=== PATIENT | male | born 1960 | race Caucasian/White ===

== ENCOUNTER → 2016-07-02 | Outpatient (CLI) | payer OTHER ==
--- NOTE | 2016-07-02 14:44 | US ---
EXAMINATION TYPE: US abdomen complete DATE OF EXAM: 07/02/2016 2:29 PM COMPARISON: NONE CLINICAL HISTORY: R10.9 Abdominal Pain. Cannot eat for weeks EXAM MEASUREMENTS: Liver Length: 16.2cm Gallbladder Wall: 0.2cm CBD: 0.6cm Spleen: 11.5cm Right Kidney: 9.8 x 4.8 x 4.9cm Left Kidney: 10.3 x 4.4 x 5.2cm TECHNOLOGIST IMPRESSION: obscuring bowel gas limited Pancreas: limited views due to bowel gas Liver: possible focal fatty sparring seen near nilda hepatis, intercostal imaging only Gallbladder: wnl Evidence for sonographic Post's sign: no CBD: wnl Spleen: wnl Right Kidney: wnl Left Kidney: wnl Upper IVC: wnl Abd Aorta: limited views due to bowel gas The liver is heterogeneously hyperechoic. Evaluation for focal masses is limited due to the heterogen eity. Suspect fatty infiltration. The intrahepatic portion of the IVC and visualized abdominal aorta are within normal limits. There is no evidence of cholelithiasis. Common bile duct is upper limits of normal. The visualized portions of the pancreas are homogenous. The spleen is unremarkable. Kid neys are symmetric and free of hydronephrosis. No renal lesions are seen. IMPRESSION: No significant finding is seen to account for patient's symptoms. Diffuse fatty infiltrat ion of liver is felt present.
== END | disposition home or self-care (01) ==
LOC: RADUSWWP 14:09
PROVIDERS: ATTEND Family Medicine
DX: R10.9 Unspecified abdominal pain (principal)
CPT/HCPCS: 76700

== ENCOUNTER 2017-11-05 12:28 | Emergency (ER) | payer OTHER ==
[2017-11-05] MEDS ORDERED: SODIUM CHLORIDE 0.9% 1,000 ML IV STA ×2 (13:59)
[2017-11-05] MEDS ORDERED: PANTOPRAZOLE 40 MG/10 ML VIAL IVP STA (13:59)
[2017-11-05] MEDS ORDERED: ONDANSETRON 4 MG/2 ML VIAL IVP STA (13:59)
[2017-11-05 14:35] LABS: Basophils # (A) 0.1 k/uL (0-0.2); Basophils % (A) 1 %; Eosinophils # (A) 0.2 k/uL (0-0.7); Eosinophils % (A) 2 %; HCT 45.5 % (39.0-53.0); HGB 15.6 gm/dL (13.0-17.5); Lymphocytes # (A) 2.2 k/uL (1.0-4.8); Lymphocytes % (A) 26 %; MCH 29.5 pg (25.0-35.0); MCHC 34.3 g/dL (31.0-37.0); MCV 85.8 fL (80.0-100.0); Mean Platelet Volume 7.2; Monocytes # (A) 0.8 k/uL (0-1.0); Monocytes % (A) 9 %; Neutrophils # (A) 5.3 k/uL (1.3-7.7); Neutrophils % (A) 61 %; Platelet Count 247 k/uL (150-450); WBC 8.7 k/uL (3.8-10.6)
[2017-11-05 14:43] LABS: Albumin 4.3 g/dL (3.5-5.0); Appearance,Urine Clear (Clear); Bilirubin,Urine Negative (Negative); Blood,Urine Trace (Negative); Calcium 9.4 mg/dL (8.4-10.2); Color,Urine Yellow; Glucose,Urine (UA) Negative (Negative); INR 3.8 (<1.2); Ketones,Urine Negative (Negative); Leukocyte Esterase,Urine Negative (Negative); Mucus,Urine Rare /hpf; Nitrite,Urine Negative (Negative); PH, Urine 5.5 (5.0-8.0); Partial Thromboplastin Time 28.4 sec (22.0-30.0); Potassium 4.4 mmol/L (3.5-5.1); Protein,Urine Negative (Negative); Prothrombin Time 33.8 sec (9.0-12.0); RBC,Urine 4 /hpf (0-5); Specific Gravity,Urine 1.019 (1.001-1.035); Total Bilirubin 0.8 mg/dL (0.2-1.3); Total Protein 7.1 g/dL (6.3-8.2); Urobilinogen,Urine <2.0 mg/dL (<2.0); WBC,Urine 1 /hpf (0-5)
--- NOTE | 2017-11-05 14:43 | ED ---
Abdominal Pain HPI - General Chief Complaint: Abdominal Pain Stated Complaint: abdominal pain/nausea Time Seen by Provider: 11/05/17 13:39 Source: patient, RN notes reviewed, old records reviewed Mode of arrival: ambulatory Limitations: no limitations - History of Present Illness Initial Comments: 57-year-old male presents emergency departmetn with CC of chronic abdominal pain. HE reports occasional bloody Stools, and episodes of nausea for the past few weeks. He has extensive surgical history including history of mesenteric ischemia, in which He's had 18 inches of his bowel removed surgery done at [facility] last year. . Patient reports that he is supposed follow-up with Dr. Polk regards to the history of bloody stools. He is scheduled to have a computed tomography scan but family felt like he could not wait due to the pain and nausea. He's been having poor appetite. No fever, chills. No recent bloody stools. No vomiting. - Related Data Home Medications Medication Instructions Recorded Confirmed Aspirin EC [Ecotrin Low Dose] 81 mg PO HS 11/05/17 11/05/17 Atorvastatin [Lipitor] 40 mg PO HS 11/05/17 11/05/17 Bisoprolol-Hctz 10-6.25 mg [Ziac 1 tab PO HS 11/05/17 11/05/17 10-6.25] Levothyroxine Sodium [Synthroid] 100 mcg PO DAILY 11/05/17 11/05/17 Lisinopril [Zestril] 20 mg PO HS 11/05/17 11/05/17 OLANZapine [ZyPREXA] 15 mg PO HS 11/05/17 11/05/17 Omeprazole 20 mg PO BID 11/05/17 11/05/17 Warfarin [Coumadin] 1 mg PO HS 11/05/17 11/05/17 Warfarin [Coumadin] 5 mg PO HS 11/05/17 11/05/17 clomiPRAMINE HCL 75 mg PO DAILY 11/05/17 11/05/17 clomiPRAMINE HCL 150 mg PO HS 11/05/17 11/05/17 oxyCODONE HCL 20 mg PO TID PRN 11/05/17 11/05/17 Previous Rx's Medication Instructions Recorded Ondansetron Odt [Zofran Odt] 4 mg PO Q8HR PRN #12 tab 11/05/17 Allergies Allergy/AdvReac Type Severity Reaction Status Date / Time morphine Allergy Severe Itching Verified 11/05/17 13:54 Review of Systems ROS Statement: Those systems with pertinent positive or pertinent negative responses have been documented in the HPI. ROS Other: All systems not noted in ROS Statement are negative. 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 Alert and oriented. No distress. Limitations: no limitations General appearance: alert, in no apparent distress Head exam: Present: atraumatic, normocephalic, normal inspection Eye exam: Present: normal appearance, PERRL, EOMI. Absent: scleral icterus, conjunctival injection, periorbital swelling ENT exam: Present: normal exam, mucous membranes moist Neck exam: Present: normal inspection. Absent: tenderness, meningismus, lymphadenopathy Respiratory exam: Present: normal lung sounds bilaterally. Absent: respiratory distress, wheezes, rales, rhonchi, stridor Cardiovascular Exam: Present: regular rate, normal rhythm, normal heart sounds. Absent: systolic murmur, diastolic murmur, rubs, gallop, clicks GI/Abdominal exam: Present: soft, tenderness (Patient has some diffuse tenderness over the abdomen. Very large incision over the abdomen.), normal bowel sounds. Absent: distended, guarding, rebound, rigid Extremities exam: Present: normal inspection, full ROM, normal capillary refill. Absent: tenderness, pedal edema, joint swelling, calf tenderness Back exam: Present: normal inspection Neurological exam: Present: alert, oriented X3, CN II-XII intact Psychiatric exam: Present: normal affect, normal mood Skin exam: Present: warm, dry, intact, normal color. Absent: rash Course Vital Signs 11/05/17 11/05/17 11/05/17 12:58 15:27 16:24 Temperature 98.2 F 97.6 F 97.5 F L Pulse Rate 60 52 L 54 L Respiratory 16 16 18 Rate Blood Pressure 140/92 101/57 109/57 O2 Sat by Pulse 96 97 97 Oximetry Medical Decision Making - Medical Decision Making 57 year old male with extensive abdominal surgery history presents with nausea and chronic abdominal pain. Patient also has had history of bloody stools over the past few months, none recently. Family encouraged him to be elaulated sooner.He has an extensive scar in mid abdomen with hernia related to surgery. PAtient was tedner over the area, but appears in no distress. Patient lab work was unremarkable, besides mildy elevated INR of 3.8. He will hold off on coumadin today. Rechecked next week. Patient CT scan shows extensive diastasis recti from surgery. No other acute changes. Patient has plans to follow up with surgery. Patient informed of all results, no new acute changes. Patient will follow up with PCP and surgery, return parameters discussed. - Lab Data Result diagrams: 11/05/17 14:09 11/05/17 14:09 Lab Results 11/05/17 11/05/17 11/05/17 Range/Units 14:09 14:09 14:09 WBC 8.7 (3.8-10.6) k/uL RBC 5.30 (4.30-5.90) m/uL Hgb 15.6 (13.0-17.5) gm/dL Hct 45.5 (39.0-53.0) % MCV 85.8 (80.0-100.0) fL MCH 29.5 (25.0-35.0) pg MCHC 34.3 (31.0-37.0) g/dL RDW 14.0 (11.5-15.5) % Plt Count 247 (150-450) k/uL Neutrophils % 61 % Lymphocytes % 26 % Monocytes % 9 % Eosinophils % 2 % Basophils % 1 % Neutrophils # 5.3 (1.3-7.7) k/uL Lymphocytes # 2.2 (1.0-4.8) k/uL Monocytes # 0.8 (0-1.0) k/uL Eosinophils # 0.2 (0-0.7) k/uL Basophils # 0.1 (0-0.2) k/uL PT 33.8 H (9.0-12.0) sec INR 3.8 H (<1.2) APTT 28.4 (22.0-30.0) sec Sodium 138 (137-145) mmol/L Potassium 4.4 (3.5-5.1) mmol/L Chloride 99 (98-107) mmol/L Carbon Dioxide 28 (22-30) mmol/L Anion Gap 11 mmol/L BUN 20 (9-20) mg/dL Creatinine 1.10 (0.66-1.25) mg/dL Est GFR (CKD-EPI)AfAm 86 (>60 ml/min/1.73 sqM) Est GFR (CKD-EPI)NonAf 75 (>60 ml/min/1.73 sqM) Glucose 99 (74-99) mg/dL Calcium 9.4 (8.4-10.2) mg/dL Total Bilirubin 0.8 (0.2-1.3) mg/dL AST 27 (17-59) U/L ALT 39 (21-72) U/L Alkaline Phosphatase 80 (38-126) U/L Total Protein 7.1 (6.3-8.2) g/dL Albumin 4.3 (3.5-5.0) g/dL Amylase 51 (30-110) U/L Lipase 163 (23-300) U/L Urine Color Urine Appearance (Clear) Urine pH (5.0-8.0) Ur Specific [place] (1.001-1.035) Urine Protein (Negative) Urine Glucose (UA) (Negative) Urine Ketones (Negative) Urine Blood (Negative) Urine Nitrite (Negative) Urine Bilirubin (Negative) Urine Urobilinogen (<2.0) mg/dL Ur Leukocyte Esterase (Negative) Urine RBC (0-5) /hpf Urine WBC (0-5) /hpf Urine Mucus (None) /hpf 11/05/17 Range/Units 14:09 WBC (3.8-10.6) k/uL RBC (4.30-5.90) m/uL Hgb (13.0-17.5) gm/dL Hct (39.0-53.0) % MCV (80.0-100.0) fL MCH (25.0-35.0) pg MCHC (31.0-37.0) g/dL RDW (11.5-15.5) % Plt Count (150-450) k/uL Neutrophils % % Lymphocytes % % Monocytes % % Eosinophils % % Basophils % % Neutrophils # (1.3-7.7) k/uL Lymphocytes # (1.0-4.8) k/uL Monocytes # (0-1.0) k/uL Eosinophils # (0-0.7) k/uL Basophils # (0-0.2) k/uL PT (9.0-12.0) sec INR (<1.2) APTT (22.0-30.0) sec Sodium (137-145) mmol/L Potassium (3.5-5.1) mmol/L Chloride (98-107) mmol/L Carbon Dioxide (22-30) mmol/L Anion Gap mmol/L BUN (9-20) mg/dL Creatinine (0.66-1.25) mg/dL Est GFR (CKD-EPI)AfAm (>60 ml/min/1.73 sqM) Est GFR (CKD-EPI)NonAf (>60 ml/min/1.73 sqM) Glucose (74-99) mg/dL Calcium (8.4-10.2) mg/dL Total Bilirubin (0.2-1.3) mg/dL AST (17-59) U/L ALT (21-72) U/L Alkaline Phosphatase (38-126) U/L Total Protein (6.3-8.2) g/dL Albumin (3.5-5.0) g/dL Amylase (30-110) U/L Lipase (23-300) U/L Urine Color Yellow Urine Appearance Clear (Clear) Urine pH 5.5 (5.0-8.0) Ur Specific [place] 1.019 (1.001-1.035) Urine Protein Negative (Negative) Urine Glucose (UA) Negative (Negative) Urine Ketones Negative (Negative) Urine Blood Trace H (Negative) Urine Nitrite Negative (Negative) Urine Bilirubin Negative (Negative) Urine Urobilinogen <2.0 (<2.0) mg/dL Ur Leukocyte Esterase Negative (Negative) Urine RBC 4 (0-5) /hpf Urine WBC 1 (0-5) /hpf Urine Mucus Rare H (None) /hpf - Radiology Data Radiology results: report reviewed Rectus diastasis measuring 13.9 cm wide extending from the xiphoid process along below the umbilicus 24.8 cm caudal cranial. Alarming inferior margin of the diaphyses there is irregular soft tissue thickening measuring 4.6 cm suspected to represent masslike scar tissue. Correlate with physical exam findings to exclude enlarging mass. Correlation should also be made for recent first Patient small bowel obstruction. Disposition Clinical Impression: Diastasis recti, Nausea, Elevated INR Disposition: HOME SELF-CARE Condition: Good Instructions: Ventral Hernia (ED) Additional Instructions: Patient advised to hold off on taking her Coumadin today. Recheck the INR next week. Patient should take the nausea medicine as prescribed. Follow-up with her surgeon as scheduled. Return to emergency department if any alarming signs or symptoms occur. Prescriptions: Ondansetron Odt [Zofran Odt] 4 mg PO Q8HR PRN #12 tab PRN Reason: Nausea Is patient prescribed a controlled substance at d/c from ED?: No When asked, does pt state using other controlled substances?: No If prescribed controlled substance>3 days was MAPS reviewed?: No If opioid is for acute pain is fill amount 7 days or less?: No If Rx opioid, was Start Talking consent form obtained?: No Referrals: Renaldo Rosales MD [Primary Care Provider] - 1-2 days Time of Disposition: 16:08
--- NOTE | 2017-11-05 15:23 | CT ---
EXAMINATION TYPE: CT abdomen pelvis w con DATE OF EXAM: 11/05/2017 COMPARISON: NONE HISTORY: 57-year-old male Abdominal pain/nausea. Surgery couple years ago. TECHNIQUE: Contiguous axial scanning of the abdomen and pelvis following administration of 100 ml Iso maegan 300 IV contrast. Delayed images through the kidneys and coronal/sagittal reconstructions perform ed. CT DLP: 2434.9 mGycm Automated exposure control for dose reduction was used. FINDINGS:. Heart normal size without pericardial effusion. Strandy inferior lingular atelectasis. No pleural eff usion. Tiny subcentimeter hypodensity along the falciform ligament too small for accurate CT characterizatio n, likely tiny cyst. Portal venous system is patent. No biliary ductal dilatation. Gallbladder, adrenal glands, right kidney, spleen, and pancreas show no gross organomegaly. Subcentimeter hypodensity anterior mid pole left kidney too small fractured CT characterization, like ly cyst. There is a stent in the origin of the SMA. No mesenteric or retroperitoneal lymphadenopathy. No dilated small bowel, free fluid, or free air. Mild/moderate stool burden without pericolonic infla mmatory change. Stable line from prior small bowel resection and reanastomosis in the mid lower abdom en. There is rectus diastases extending from the xiphoid to just below the umbilicus, 24.8 cm craniocauda l in separation of 13.9 cm wide. Anterior bulging convexity is noted. Along the inferior margin of th e diastases, there is focal irregular soft tissue density measuring 4.6 x 2.9 cm at the linea alba tracy spected to represent masslike scar tissue, axial image 59 and sagittal image 61. Bladder nondistended. No abnormal fluid collection in the pelvis or pelvic lymphadenopathy. Bones: No osseous destructive process. Degenerative disc disease L5-S1. IMPRESSION: 1. RECTUS DIASTASES MEASURING 13.9 CM WIDE EXTENDING FROM THE XIPHOID PROCESS DOWN BELOW THE UMBILICU S, 24.8 CM CRANIOCAUDAL. 2. ALONG THE INFERIOR MARGIN OF THE DIASTASES, THERE IS IRREGULAR SOFT TISSUE THICKENING MEASURING 4. 6 CM SUSPECTED TO REPRESENT MASSLIKE SCAR TISSUE. CORRELATE WITH PHYSICAL EXAM FINDINGS TO EXCLUDE AN Y ENLARGING MASS. CORRELATION COULD ALSO BE MADE TO THE REASON FOR THE PATIENT'S SMALL BOWEL RESEC TION.
[2017-11-05 16:25] VITALS: BP 109/57; PULSE 54; RESP 18; TEMP 97.5
== END 2017-11-05 16:24 | disposition home or self-care (01) ==
LOC: EC 12:28
DX: M62.08 Separation of muscle (nontraumatic), other site (principal); R11.0 Nausea; R79.1 Abnormal coagulation profile; G89.29 Other chronic pain; K92.1 Melena; R63.8 Other symptoms and signs concerning food and fluid intake; E78.5 Hyperlipidemia, unspecified; I10 Essential (primary) hypertension; K21.9 Gastro-esophageal reflux disease without esophagitis; E07.9 Disorder of thyroid, unspecified; M19.90 Unspecified osteoarthritis, unspecified site; H40.9 Unspecified glaucoma; F32.9 Major depressive disorder, single episode, unspecified; Z87.891 Personal history of nicotine dependence; Z79.01 Long term (current) use of anticoagulants; Z79.82 Long term (current) use of aspirin; Z79.899 Other long term (current) drug therapy; Z88.5 Allergy status to narcotic agent; Z90.49 Acquired absence of other specified parts of digestive tract; Z98.890 Other specified postprocedural states; Z97.0 Presence of artificial eye
CPT/HCPCS: 36415; 80053; 82150; 83690; 85025; 85610; 85730; 81001; 74177; 99284; 96374; 96375; 96361 ×2; J2405; C9113; Q9967

== ENCOUNTER → 2017-12-03 | Outpatient (CLI) | payer OTHER ==
--- NOTE | 2017-12-03 11:32 | US ---
EXAMINATION TYPE: US gallbladder DATE OF EXAM: 12/03/2017 COMPARISON: CLINICAL HISTORY: R10.11 Right upper quad pain. Nausea, generalized pain EXAM MEASUREMENTS: Liver Length: 15.8 cm Gallbladder Wall: 0.2 cm CBD: 0.4 cm CHD: 0.3 cm Right Kidney: 10.4 x 4.9 x 6.1 cm Pancreas: Appears echogenic. Tail obscured by overlying bowel gas Liver: Anterior cystic appearing lesion seen in right lobe = 1.1 x 1.0 x 0.7 cm. Heterogenous. Ech ogenic. Areas of focal sparing seen. Gallbladder: wnl, fold seen Evidence for sonographic Post's sign: neg CBD: wnl CHD: wnl Right Kidney: wnl IMPRESSION: 1. Hepatic cysts. 2. Hepatic heterogeneity may reflect underlying fatty hepatic infiltration with areas of focal fatty sparing.
== END | disposition home or self-care (01) ==
LOC: RADUSWWP 10:41
PROVIDERS: ATTEND Surgery Plastic and Reconstructive Surgery
DX: K76.89 Other specified diseases of liver (principal); Z88.5 Allergy status to narcotic agent
CPT/HCPCS: 76705

== ENCOUNTER → 2017-12-10 | Outpatient (CLI) | payer OTHER ==
--- NOTE | 2017-12-10 14:55 | CT ---
EXAMINATION TYPE: CT angio abdomen pelvis DATE OF EXAM: 12/10/2017 COMPARISON: 11/05/2017 HISTORY: 57-year-old male occlusive mesenteric ischemia TECHNIQUE: Contiguous axial scanning of the abdomen and pelvis before and after administration of 100 ml Isovue-370 IV contrast. Coronal and sagittal MIP reconstructions performed. 3-D reconstructions generated on a dedicated independent workstation. CT DLP: 2856.20 mGycm Automated exposure control for dose reduction was used. FINDINGS: Heart is normal size without pericardial effusion. Strandy atelectasis inferior lingula. No pleural e ffusion. Subcentimeter hypodensity segment 3 left liver lobe [address] characterization, stable, li farhana cyst. Gallbladder, adrenal glands, kidneys, spleen, and pancreas appear within normal limits. There is rectus diastases with anterior bulging and separation up to 15.3 cm wide. The celiac axis is patent. A stent is present at the SMA origin and the SMA is patent. There is some focal soft tissue stranding in the upper SMA, approximately 5 cm beyond its origin, refer to axial im age 34-36. The vessel appears patent. Russell bilateral renal arteries are patent. HUEY is patent. No evidence for aneurysm. No dilated small bowel, free fluid, or free air. Focal spiculated soft tissue thickening along the patient's infraumbilical scar measuring 4.3 cm, unc hanged, likely scar tissue. There is a mid to lower abdominal small bowel resection and reanastomosis . Diverticulosis along the descending colon. No pericolonic inflammatory change seen. No mesenteric or retroperitoneal lymphadenopathy. Bladder partially distended. No abnormal fluid collection in the pelvis or pelvic lymphadenopathy. Bones: Mild degenerative changes at the hips. Additional degenerative changes lower lumbar spine. IMPRESSION: 1. FOCAL INFLAMMATORY SOFT TISSUE STRANDING ADJACENT TO THE SMA, 5 CM BEYOND ITS ORIGIN. NONSPECIFIC INFLAMMATION IS SUGGESTED. SOME POSSIBILITIES INCLUDE MEDIUM VESSEL VASCULITIS AND MESENTERIC PANNICU LITIS. 2. NO VISCERAL ARTERIAL THROMBOSIS IDENTIFIED. 3. PRIOR SMA STENT. 4. REDEMONSTRATED RECTUS DIASTASES (15.3 CM WIDE) AND IRREGULAR SOFT TISSUE THICKENING MEASURING 4.3 CM ALONG THE INFRAUMBILICAL MIDLINE, LIKELY MASSLIKE SCAR TISSUE.
== END | disposition home or self-care (01) ==
LOC: RADCTMAIN 09:52
PROVIDERS: ATTEND Physician Assistant
DX: M62.08 Separation of muscle (nontraumatic), other site (principal); M79.9 Soft tissue disorder, unspecified
CPT/HCPCS: 74174; Q9967

== ENCOUNTER 2018-01-09 07:07 | Day surgery (SDC) | payer OTHER ==
[2018-01-06 16:56] VITALS: BMI 38.2
--- NOTE | 2018-01-09 00:41 | P.GSHP ---
History of Present Illness H&P Date: 01/09/18 CHIEF COMPLAINT: Colon screen HISTORY OF PRESENT ILLNESS: The patient is a 57-year-old male who presents for colon screen. Lower endoscopy was offered for further evaluation and management. PAST MEDICAL HISTORY: Please see list. PAST SURGICAL HISTORY: Please see list. MEDICATIONS: Please see list. ALLERGIES: Please see list. SOCIAL HISTORY: No illicit drug use FAMILY HISTORY: No reports of Crohn disease or ulcerative colitis. REVIEW OF ORGAN SYSTEMS: CONSTITUTIONAL: No reports of fevers or chills. PHYSICAL EXAM: VITAL SIGNS: Stable GENERAL: Well-developed pleasant in no acute distress. HEENT: No scleral icterus. Extraocular movements grossly intact. Moist buccal mucosa. NECK: Supple without lymphadenopathy. CHEST: Unlabored respirations. Equal bilateral excursions. CARDIOVASCULAR: Regular rate and rhythm. Distal 2+ pulses. ABDOMEN: Soft, nontender, nondistended. MUSCULOSKELETAL: No clubbing, cyanosis, or edema. ASSESSMENT: 1. Colon screen. PLAN: 1. Recommend proceeding with a lower endoscopy Past Medical History Past Medical History: Deep Vein Thrombosis (DVT), Eye Disorder, GERD/Reflux, Hyperlipidemia, Hypertension, Osteoarthritis (OA), Thyroid Disorder Additional Past Medical History / Comment(s): Hx glaucoma rt eye ( rt eye prosthesis). BLOOD CLOTS X3 IN STOMACH 08/2016. C/O NAUSEA X6 MO, NO APPETITE, WGT LOSS 40#; BLOOD IN STOOL 01/05/18. DIARRHEA FOR LAST MO. History of Any Multi-Drug Resistant Organisms: None Reported Past Surgical History: Appendectomy, Bowel Resection, Tonsillectomy Additional Past Surgical History / Comment(s): RT EYE EXTRACTED. BOWEL RESECTION, REMOVAL 16", EXC 3 BLOOD CLOTS, PUT IN 2 STENTS. Past Anesthesia/Blood Transfusion Reactions: No Reported Reaction Smoking Status: Former smoker - Past Family History Father Family Medical History: Cancer Sister(s) Family Medical History: Coronary Artery Disease (CAD) Medications and Allergies Home Medications Medication Instructions Recorded Confirmed Type Aspirin EC [Ecotrin Low Dose] 81 mg PO HS 11/05/17 01/06/18 History Atorvastatin [Lipitor] 40 mg PO HS 11/05/17 01/06/18 History Bisoprolol-Hctz 10-6.25 mg [Ziac 1 tab PO HS 11/05/17 01/06/18 History 10-6.25] Levothyroxine Sodium [Synthroid] 100 mcg PO DAILY 11/05/17 01/06/18 History Lisinopril [Zestril] 20 mg PO HS 11/05/17 01/06/18 History OLANZapine [ZyPREXA] 15 mg PO HS 11/05/17 01/06/18 History Omeprazole 20 mg PO BID 11/05/17 01/06/18 History Warfarin [Coumadin] 1 mg PO MOFR 11/05/17 01/06/18 History Warfarin [Coumadin] 5 mg PO HS 11/05/17 01/06/18 History clomiPRAMINE HCL 75 mg PO DAILY 11/05/17 01/06/18 History Allergies Allergy/AdvReac Type Severity Reaction Status Date / Time morphine Allergy Severe Itching Verified 01/06/18 16:31
[~2018-01-09 07:07] MED LIST: LIDOCAINE 1% 20 ML VIAL (10MG/ML) FOR IV START INTRADERMA PRN; MIDAZOLAM 2 MG/2 ML VIAL IV PRN
[2018-01-09 07:24] VITALS: RESP 18; TEMP 98
[2018-01-09] MEDS: LACTATED RINGERS 1,000 ML IV SCH ×2 (07:29→07:53)
[2018-01-09] MEDS ORDERED: LIDOCAINE 1% INJ 10MG/ML (20 ML MDV) ONE (07:54)
[2018-01-09] MEDS ORDERED: PROPOFOL 10 MG/ML 20 ML VIAL IV ONE (07:54)
--- NOTE | 2018-01-09 08:14 | P.PCN ---
Date of Procedure: 01/09/18 Description of Procedure: PREOPERATIVE DIAGNOSIS: History of rectal bleeding Personal history of Coumadin and anticoagulant use POSTOPERATIVE DIAGNOSIS: History of rectal bleeding Personal history of Coumadin and anticoagulant use Sigmoid colitis OPERATION: Colonoscopy to the ileocecal valve SURGEON: Blanca Kim MD. ANESTHESIA: MAC. INDICATIONS: The patient is a 57-year-old male who presents with rectal bleeding. Benefits and risks were described and informed consent was obtained. DESCRIPTION OF PROCEDURE: The patient had undergone Gatorade, MiraLAX and Dulcolax prep. He had been brought into the operating room and laid in the left lateral decubitus position. After adequate intravenous sedation, the rectum was examined with 2% lidocaine jelly. The prostate was smooth without abnormality. No complicated external hemorrhoids were encountered. The rectal tone was within normal limits. No lesions were palpated in the rectal vault. An Olympus colonoscope was advanced until the ileocecal valve was viewed. The prep was fair with residual semisolid stool and requirement of irrigation. The scope was removed to visualize the mucosal folds. No colonic polyps were found. Sigmoid focal colitis was found. Uncomplicated grade 1 internal hemorrhoids without active bleeding or inflammation were found. The colon was desufflated. The patient had tolerated the procedure well. Withdrawal time was over 6 minutes. FINDINGS: Internal hemorrhoids, grade 1 No external prolapsed hemorrhoids. No arteriovenous malformations. No adenomatous polyps. Sigmoid focal colitis No wide pocket diverticuli of the colon RECOMMENDATIONS: Repeat colonoscopy in 5 years, 2022 Flagyl for 7 days for colitis Plan - Discharge Summary New Discharge Prescriptions: No Action Warfarin [Coumadin] 1 mg PO MOFR Warfarin [Coumadin] 5 mg PO HS OLANZapine [ZyPREXA] 15 mg PO HS Aspirin EC [Ecotrin Low Dose] 81 mg PO HS Lisinopril [Zestril] 20 mg PO HS clomiPRAMINE HCL 75 mg PO DAILY Levothyroxine Sodium [Synthroid] 100 mcg PO DAILY Omeprazole 20 mg PO BID Bisoprolol-Hctz 10-6.25 mg [Ziac 10-6.25] 1 tab PO HS Atorvastatin [Lipitor] 40 mg PO HS Discharge Medication List Aspirin EC [Ecotrin Low Dose] 81 mg PO HS 11/05/17 [History] Atorvastatin [Lipitor] 40 mg PO HS 11/05/17 [History] Bisoprolol-Hctz 10-6.25 mg [Ziac 10-6.25] 1 tab PO HS 11/05/17 [History] Levothyroxine Sodium [Synthroid] 100 mcg PO DAILY 11/05/17 [History] Lisinopril [Zestril] 20 mg PO HS 11/05/17 [History] OLANZapine [ZyPREXA] 15 mg PO HS 11/05/17 [History] Omeprazole 20 mg PO BID 11/05/17 [History] Warfarin [Coumadin] 1 mg PO MOFR 11/05/17 [History] Warfarin [Coumadin] 5 mg PO HS 11/05/17 [History] clomiPRAMINE HCL 75 mg PO DAILY 11/05/17 [History]
[2018-01-09 09:00] VITALS: BP 122/79; PULSE 60
== END 2018-01-09 09:00 | disposition home or self-care (01) ==
LOC: ORWHC2ENDO 07:07
PROVIDERS: ATTEND Surgery Plastic and Reconstructive Surgery
DX: K62.5 Hemorrhage of anus and rectum (principal); K52.9 Noninfective gastroenteritis and colitis, unspecified; K64.0 First degree hemorrhoids; Z86.718 Personal history of other venous thrombosis and embolism; K21.9 Gastro-esophageal reflux disease without esophagitis; E78.5 Hyperlipidemia, unspecified; I10 Essential (primary) hypertension; M19.90 Unspecified osteoarthritis, unspecified site; E07.9 Disorder of thyroid, unspecified; Z87.891 Personal history of nicotine dependence; Z82.49 Family history of ischemic heart disease and other diseases of the circulatory system; Z79.82 Long term (current) use of aspirin; Z79.890 Hormone replacement therapy; Z79.899 Other long term (current) drug therapy; Z88.5 Allergy status to narcotic agent; Z79.01 Long term (current) use of anticoagulants
CPT/HCPCS: 45378; J2001; J2704

== ENCOUNTER 2018-01-26 11:58 | Inpatient (IN) | payer OTHER ==
[2018-01-26] MEDS ORDERED: SODIUM CHLORIDE 0.9% 500 ML IV STA (12:15)
[2018-01-26] MEDS ORDERED: ONDANSETRON 4 MG/2 ML VIAL IVP STA (12:21)
--- NOTE | 2018-01-26 12:31 | ED ---
General Adult HPI - General Chief complaint: Abdominal Pain Stated complaint: abd pain Time Seen by Provider: 01/26/18 12:11 Source: patient, RN notes reviewed, old records reviewed Mode of arrival: ambulatory Limitations: no limitations - History of Present Illness Initial comments: 57-year-old male presents with generalized abdominal pain nausea vomiting and diarrhea. Patient states the symptoms have been progressive over the past several months. He states he has lost 55 pounds over the past 2 months secondary to nausea vomiting and diarrhea. He has 3-4 episodes of vomiting daily. He also has 5-6 episodes of watery diarrhea. He has been seen by his primary care physician and gastroenterology. He's had a colonoscopy. Patient has history of SMA occlusion with ischemic colitis and bowel resection approximately one year ago. He is currently on Coumadin, he has an SMA stent. Patient does report some chest pain as well. He believes this is secondary to his vomiting. Denies any substernal nonradiating chest pain. Denies fever or chills. He has been on recent antibiotics. - Related Data Home Medications Medication Instructions Recorded Confirmed Aspirin EC [Ecotrin Low Dose] 81 mg PO HS 11/05/17 01/26/18 Atorvastatin [Lipitor] 40 mg PO HS 11/05/17 01/26/18 Bisoprolol-Hctz 10-6.25 mg [Ziac 1 tab PO HS 11/05/17 01/26/18 10-6.25] Levothyroxine Sodium [Synthroid] 100 mcg PO DAILY 11/05/17 01/26/18 Lisinopril [Zestril] 20 mg PO HS 11/05/17 01/26/18 OLANZapine [ZyPREXA] 15 mg PO HS 11/05/17 01/26/18 Omeprazole 20 mg PO BID 11/05/17 01/26/18 Warfarin [Coumadin] 1 mg PO MOFR 11/05/17 01/26/18 Warfarin [Coumadin] 5 mg PO HS 11/05/17 01/26/18 clomiPRAMINE HCL 75 mg PO DAILY 11/05/17 01/26/18 Allopurinol [Zyloprim] 100 mg PO DAILY 01/26/18 01/26/18 Colchicine 0.6 mg PO TID PRN 01/26/18 01/26/18 Allergies Allergy/AdvReac Type Severity Reaction Status Date / Time morphine Allergy Severe Itching Verified 01/26/18 12:34 Review of Systems ROS Statement: Those systems with pertinent positive or pertinent negative responses have been documented in the HPI. ROS Other: All systems not noted in ROS Statement are negative. 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 BLOOD CLOTS X3 IN STOMACH 08/2016. C/O NAUSEA X6 MO, NO APPETITE, WGT LOSS 40#; BLOOD IN STOOL 01/05/18. DIARRHEA FOR LAST MO. History of Any Multi-Drug Resistant Organisms: None Reported Past Surgical History: Appendectomy, Bowel Resection, Heart Catheterization With Stent, Tonsillectomy Additional Past Surgical History / Comment(s): RT EYE EXTRACTED. BOWEL RESECTION, REMOVAL 16", EXC 3 BLOOD CLOTS, PUT IN 2 STENTS. Past Anesthesia/Blood Transfusion Reactions: No Reported Reaction Past Psychological History: Anxiety Smoking Status: Former smoker Past Alcohol Use History: None Reported Past Drug Use History: Marijuana - Past Family History Father Family Medical History: Cancer Sister(s) Family Medical History: Coronary Artery Disease (CAD) General Exam Limitations: no limitations General appearance: alert, in no apparent distress Head exam: Present: atraumatic, normocephalic Eye exam: Absent: PERRL (Right eye removed secondary to glaucoma) ENT exam: Present: mucous membranes dry Neck exam: Present: normal inspection. Absent: tenderness, meningismus Respiratory exam: Present: normal lung sounds bilaterally, chest wall tenderness. Absent: respiratory distress, wheezes Cardiovascular Exam: Present: regular rate, normal rhythm GI/Abdominal exam: Present: soft, tenderness (Very mild generalized tenderness) . Absent: distended, guarding, rebound Extremities exam: Present: normal inspection, normal capillary refill. Absent: pedal edema Neurological exam: Present: alert, oriented X3 Psychiatric exam: Present: normal affect, normal mood Skin exam: Present: warm, dry, intact Course Vital Signs 01/26/18 12:09 Temperature 97 F L Pulse Rate 75 Respiratory 18 Rate Blood Pressure 133/80 O2 Sat by Pulse 92 L Oximetry EKG Findings - EKG Comments: EKG Findings:: EKG: Sinus bradycardia, rate of 54, OH interval 174, QRS duration 82, QTC 388, no ST segment changes Medical Decision Making - Medical Decision Making 51 sexual male presenting with nausea vomiting diarrhea as well as generalized abdominal pain. Patient states he has had some issues with his gallbladder in the past and is worried this is secondary to gallbladder issue, ultrasound is obtained in the emergency department negative for acute cholecystitis, no dilatation of the common bile duct. Patient has normal CBC, INR is supratherapeutic at 10. Coumadin will be held. No signs of bleeding. Creatinine 1.89 which is doubled compared to previously normal kidney function. X-rays obtained show ileus versus enteritis, history more consistent with enteritis. Patient will be admitted for IV hydration and GI consultation. Stool sample pending for C. difficile toxin. - Lab Data Result diagrams: 01/26/18 12:34 01/26/18 12:34 Lab Results 01/26/18 01/26/18 01/26/18 Range/Units 12:34 12:34 12:34 WBC 8.9 (3.8-10.6) k/uL RBC 5.74 (4.30-5.90) m/uL Hgb 17.3 (13.0-17.5) gm/dL Hct 51.8 (39.0-53.0) % MCV 90.3 (80.0-100.0) fL MCH 30.1 (25.0-35.0) pg MCHC 33.3 (31.0-37.0) g/dL RDW 13.7 (11.5-15.5) % Plt Count 283 (150-450) k/uL Neutrophils % 66 % Lymphocytes % 20 % Monocytes % 8 % Eosinophils % 1 % Basophils % 1 % Neutrophils # 5.9 (1.3-7.7) k/uL Lymphocytes # 1.8 (1.0-4.8) k/uL Monocytes # 0.7 (0-1.0) k/uL Eosinophils # 0.1 (0-0.7) k/uL Basophils # 0.1 (0-0.2) k/uL PT (9.0-12.0) sec INR (<1.2) APTT (22.0-30.0) sec Sodium 137 (137-145) mmol/L Potassium 4.9 (3.5-5.1) mmol/L Chloride 103 (98-107) mmol/L Carbon Dioxide 22 (22-30) mmol/L Anion Gap 12 mmol/L BUN 41 H (9-20) mg/dL Creatinine 1.89 H (0.66-1.25) mg/dL Est GFR (CKD-EPI)AfAm 45 (>60 ml/min/1.73 sqM) Est GFR (CKD-EPI)NonAf 39 (>60 ml/min/1.73 sqM) Glucose 99 (74-99) mg/dL Plasma Lactic Acid Sean (0.7-2.0) mmol/L Calcium 9.7 (8.4-10.2) mg/dL Total Bilirubin 1.2 (0.2-1.3) mg/dL AST 43 (17-59) U/L ALT 49 (21-72) U/L Alkaline Phosphatase 106 (38-126) U/L Total Creatine Kinase 134 (55-170) U/L CK-MB (CK-2) 1.8 (0.0-2.4) ng/mL CK-MB (CK-2) Rel Index 1.3 Troponin I <0.012 (0.000-0.034) ng/mL Total Protein 7.8 (6.3-8.2) g/dL Albumin 4.5 (3.5-5.0) g/dL Amylase 67 (30-110) U/L Lipase 273 (23-300) U/L Urine Color Urine Appearance (Clear) Urine pH (5.0-8.0) Ur Specific [place] (1.001-1.035) Urine Protein (Negative) Urine Glucose (UA) (Negative) Urine Ketones (Negative) Urine Blood (Negative) Urine Nitrite (Negative) Urine Bilirubin (Negative) Urine Urobilinogen (<2.0) mg/dL Ur Leukocyte Esterase (Negative) Urine RBC (0-5) /hpf Urine WBC (0-5) /hpf Ur Squamous Epith Cells (0-4) /hpf Urine Bacteria (None) /hpf Hyaline Casts (0-2) /lpf Granular Casts (0) /lpf Urine Mucus (None) /hpf 01/26/18 01/26/18 01/26/18 Range/Units 12:34 12:34 12:34 WBC (3.8-10.6) k/uL RBC (4.30-5.90) m/uL Hgb (13.0-17.5) gm/dL Hct (39.0-53.0) % MCV (80.0-100.0) fL MCH (25.0-35.0) pg MCHC (31.0-37.0) g/dL RDW (11.5-15.5) % Plt Count (150-450) k/uL Neutrophils % % Lymphocytes % % Monocytes % % Eosinophils % % Basophils % % Neutrophils # (1.3-7.7) k/uL Lymphocytes # (1.0-4.8) k/uL Monocytes # (0-1.0) k/uL Eosinophils # (0-0.7) k/uL Basophils # (0-0.2) k/uL PT >130.0 H (9.0-12.0) sec INR >10.0 H* (<1.2) APTT 38.6 H (22.0-30.0) sec Sodium (137-145) mmol/L Potassium (3.5-5.1) mmol/L Chloride (98-107) mmol/L Carbon Dioxide (22-30) mmol/L Anion Gap mmol/L BUN (9-20) mg/dL Creatinine (0.66-1.25) mg/dL Est GFR (CKD-EPI)AfAm (>60 ml/min/1.73 sqM) Est GFR (CKD-EPI)NonAf (>60 ml/min/1.73 sqM) Glucose (74-99) mg/dL Plasma Lactic Acid Sean 1.0 (0.7-2.0) mmol/L Calcium (8.4-10.2) mg/dL Total Bilirubin (0.2-1.3) mg/dL AST (17-59) U/L ALT (21-72) U/L Alkaline Phosphatase (38-126) U/L Total Creatine Kinase (55-170) U/L CK-MB (CK-2) (0.0-2.4) ng/mL CK-MB (CK-2) Rel Index Troponin I (0.000-0.034) ng/mL Total Protein (6.3-8.2) g/dL Albumin (3.5-5.0) g/dL Amylase (30-110) U/L Lipase (23-300) U/L Urine Color Yellow Urine Appearance Clear (Clear) Urine pH 5.5 (5.0-8.0) Ur Specific [place] 1.026 (1.001-1.035) Urine Protein 1+ H (Negative) Urine Glucose (UA) Negative (Negative) Urine Ketones Negative (Negative) Urine Blood Negative (Negative) Urine Nitrite Negative (Negative) Urine Bilirubin 1+ H (Negative) Urine Urobilinogen 2.0 (<2.0) mg/dL Ur Leukocyte Esterase Negative (Negative) Urine RBC 3 (0-5) /hpf Urine WBC 3 (0-5) /hpf Ur Squamous Epith Cells <1 (0-4) /hpf Urine Bacteria Rare H (None) /hpf Hyaline Casts 156 H (0-2) /lpf Granular Casts 1 (0) /lpf Urine Mucus Few H (None) /hpf Disposition Clinical Impression: Abdominal pain, Nausea vomiting and diarrhea, Dehydration, Acute kidney injury Disposition: ADMITTED IP TO THIS [facility] Condition: Stable Is patient prescribed a controlled substance at d/c from ED?: No Referrals: Renaldo Rosales MD [Primary Care Provider] - 1-2 days Time of Disposition: 14:20 Decision to Admit Reason: Admit from EC Decision Date: 01/26/18 Decision Time: 14:20
[2018-01-26 13:00] LABS: Basophils # (A) 0.1 k/uL (0-0.2); Basophils % (A) 1 %; Eosinophils # (A) 0.1 k/uL (0-0.7); Eosinophils % (A) 1 %; HCT 51.8 % (39.0-53.0); HGB 17.3 gm/dL (13.0-17.5); Lymphocytes # (A) 1.8 k/uL (1.0-4.8); Lymphocytes % (A) 20 %; MCH 30.1 pg (25.0-35.0); MCHC 33.3 g/dL (31.0-37.0); MCV 90.3 fL (80.0-100.0); Mean Platelet Volume 7.7; Monocytes # (A) 0.7 k/uL (0-1.0); Monocytes % (A) 8 %; Neutrophils # (A) 5.9 k/uL (1.3-7.7); Neutrophils % (A) 66 %; Platelet Count 283 k/uL (150-450); RBC 5.74 m/uL (4.30-5.90); RDW 13.7 % (11.5-15.5); WBC 8.9 k/uL (3.8-10.6)
[2018-01-26 13:09] LABS: Albumin 4.5 g/dL (3.5-5.0); Calcium 9.7 mg/dL (8.4-10.2); Potassium 4.9 mmol/L (3.5-5.1); Total Bilirubin 1.2 mg/dL (0.2-1.3); Total Protein 7.8 g/dL (6.3-8.2)
[2018-01-26 13:11] LABS: Appearance,Urine Clear (Clear); Bacteria,Urine Rare /hpf; Bilirubin,Urine 1+ (Negative); Blood,Urine Negative (Negative); Color,Urine Yellow; Glucose,Urine (UA) Negative (Negative); Granular Casts,Urine 1 /lpf (0); Hyaline Casts,Urine 156 /lpf (0-2); Ketones,Urine Negative (Negative); Leukocyte Esterase,Urine Negative (Negative); Mucus,Urine Few /hpf; Nitrite,Urine Negative (Negative); PH, Urine 5.5 (5.0-8.0); Protein,Urine 1+ (Negative); RBC,Urine 3 /hpf (0-5); Specific Gravity,Urine 1.026 (1.001-1.035); Squamous Epithelial Cell,Urine <1 /hpf (0-4); WBC,Urine 3 /hpf (0-5)
[2018-01-26 13:13] LABS: Partial Thromboplastin Time 38.6 sec (22.0-30.0)
--- NOTE | 2018-01-26 13:13 | XR ---
Abdomen HISTORY: Pain, nausea vomiting diarrhea Frontal view of the abdomen on 2 images correlated to prior CT dated 12/10/2017 There are air-fluid levels without bowel distention. Stent is present within the superior mesenteric artery distribution. No pneumoperitoneum. Lung bases are clear. Vascular calcifications present withi n the pelvis. Postop changes also noted in the pelvis. IMPRESSION: Postop and postprocedural changes. Correlate for possible ileus or enteritis, follow-up a s indicated.
[2018-01-26 13:20] LABS: Creatine Kinase 134 U/L (55-170)
[2018-01-26 13:34] LABS: Creatine Kinase MB 1.8 ng/mL (0.0-2.4); Troponin I <0.012 ng/mL (0.000-0.034)
[2018-01-26 13:40] LABS: Prothrombin Time >130.0 sec (9.0-12.0)
[2018-01-26 13:41] LABS: INR >10.0 (<1.2)
--- NOTE | 2018-01-26 13:55 | US ---
EXAMINATION TYPE: US gallbladder DATE OF EXAM: 01/26/2018 COMPARISON: Previous exam 12/03/2017. CLINICAL HISTORY: Pain. weight loss of 54lbs since October, vomiting h/o bowel surgery EXAM MEASUREMENTS: Liver Length: 16.6 cm Gallbladder Wall: 0.2 cm CBD: 0.6 cm Right Kidney: 10.5 x 5.4 x 5.4 cm limited exam due to bowel gas Pancreas: not seen due to gas Liver: difficult to penetrate Gallbladder: wnl Evidence for sonographic Post's sign: no CBD: wnl Right Kidney: wnl IMPRESSION: Exam is limited. There may be underlying hepatic steatosis.
[2018-01-26] MEDS ORDERED: NALOXONE 0.4 MG/ML 1 ML VIAL IV PRN (14:38)
[2018-01-26] MEDS ORDERED: ACETAMINOPHEN TAB 325 MG TAB PO PRN (14:38)
[2018-01-26] MEDS ORDERED: SODIUM CHLORIDE 0.9% 1,000 ML IV SCH (14:45)
[2018-01-26] MEDS: ONDANSETRON 4 MG/2 ML VIAL IVP PRN (17:18)
[2018-01-26] MEDS ORDERED: HYDROmorphone 1 MG/ML 1 ML SYRINGE IVP STA ×2 (20:14→21:27)
[2018-01-26] MEDS ORDERED: PHYTONADIONE 5 MG in SODIUM CHLORIDE 0.9% 50 ML IVPB STA (21:57)
--- NOTE | 2018-01-26 23:35 | HP ---
HISTORY AND PHYSICAL DATE OF ADMISSION: 01/26/2018. DATE OF SERVICE: January 26, 2018. PRESENTING COMPLAINT: Abdominal pain, nausea and vomiting. HISTORY OF PRESENTING COMPLAINT: This is a 57-year-old patient who follows with Dr. Rosales. Chronic stable medical conditions include coronary artery disease with stent, history of DVT in the gut, absent right eye, GERD, hyperlipidemia, hypertension, osteoarthritis, thyroid disorder. The patient on August 2016, presented to the ER here, was shipped to [facility] and patient says 16 inches of bowel was removed and he was found to have 3 blood clots. The patient also had 2 stents be placed in his gut. He did follow up with [facility] surgeon for some time. Now since October of this year, the patient has been having persistent nausea and has about 6 bowel movements a day, typically watery, sometimes yellow. The patient has lost close to 54 pounds. He was in the ER recently. He was told he had a hernia. He was told to follow up with Dr. Kim. Dr. Kim did do a colonoscopy. Colonoscopy on January 09, 2018 was found to have sigmoid colitis. The patient was given a 7 day course of Flagyl. The patient's symptoms continued to persist. The patient also has an appointment to see Dr. Henderson. The patient's abdominal pain has been getting worse. REVIEW OF SYSTEMS: CONSTITUTIONAL: Weak, tired, run down. Weight loss. HEENT: Absent right eye. RESPIRATORY: Occasional wheezing. CARDIOVASCULAR: None. GASTROINTESTINAL as above. GENITOURINARY: None. MUSCULOSKELETAL: Chronic pain in the joints. DERMATOLOGICAL none. HEMATOLOGIC and LYMPHATIC none. PSYCHIATRY a bit anxious. NEUROLOGICAL none. 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 PAST SURGICAL HISTORY: Appendectomy, 16 inches of bowel removed, cardiac cath with stent, tonsillectomy, right eye removed, bowel resection 16 inches with some blood clots removed. Had 2 stents at [facility]. PSYCH HISTORY: Anxiety. SOCIAL HISTORY: The patient smoked anywhere from 2-4 packs a day for close to 31 years. Stopped in 2005. Does marijuana for his nausea. Lives with friends. Did different jobs. Alcohol occasionally. FAMILY HISTORY: Of cancer type unknown. HOME MEDICATIONS: 1. Clomipramine 75 mg p.o. daily. 2. Coumadin 5 mg q.h.s. and 1 mg on Mondays and Fridays. 3. Omeprazole 20 mg b.i.d. 4. Zyprexa 50 mg q.h.s. 5. Zestril 20 mg at bedtime. 6. Synthroid 100 mcg p.o. daily. 7. Colchicine 0.6 mg p.o. t.i.d. p.r.n. 8. Ziac, bisoprolol hydrochlorothiazide 02/21.25, 1 tablet p.o. q.h.s. 9. Lipitor 40 mg q.h.s. 10.Aspirin 81 mg q.h.s. 11.Allopurinol 100 mg p.o. daily. ALLERGIES: TO MORPHINE CAUSING ITCHING. PHYSICAL EXAMINATION: VITAL SIGNS: Temperature 97, pulse 75, respiratory 18, blood pressure 133/80, pulse ox 92 percent on room air. GENERAL APPEARANCE: Well built, BMI 36.2, sitting up, somewhat restless. EYES: Right eye is absent. Left eye is normal. Conjunctivae normal. HEENT: External appearance of nose and ears normal. Oral cavity a bit dry. NECK JVD unable to assess. Mass not palpable. RESPIRATORY: Effort slightly increased. LUNGS decreased breath sounds. CARDIOVASCULAR: 1st and 2nd sounds normal. No edema. ABDOMEN: Soft. Midline scar with central tenderness. No guarding or rigidity. Liver and spleen not palpable. There is divarication of the recti. LYMPHATICS: No lymph nodes palpable in the neck or axillae. PSYCHIATRY: Alert and oriented times three. Mood and affect normal. NEUROLOGICAL: Absent right eye. No facial asymmetry. Power and sensation grossly intact. INVESTIGATIONS: White count 8.9, hemoglobin 13.3, INR more than 10, potassium 4.9, BUN 41, creatinine 1.89. C diff negative. Ultrasound of the gallbladder may be hepatic steatosis. Abdomen pelvis CT angio on December 10 shows rectus diastasis with anterior bulging. Stent is at the SMA origin and SMA is patent with some soft tissue stranding in the upper SMA. No aneurysms. Diverticulosis along the descending colon. ASSESSMENT: 1. This patient presented with persistent nausea going on for 3-4 weeks with nausea, vomiting. The patient did take aspirin, does not take any NSAIDs and Coumadin. May have severe gastritis that could be responsible for his symptoms. 2. The patient has a weight loss of 54 pounds with poor oral intake and persistent diarrhea. The patient could be over replaced with Synthroid. Need to check hyperthyroidism. 3. Coumadin toxicity with no obvious evidence of bleeding. 4. Hypothyroidism. Need to rule out over replacement. 5. Acute renal failure likely prerenal. The patient is also on Zestril, hydrochlorothiazide and also takes colchicine which are all renal offensive drugs. 6. Sigmoid diverticulosis, asymptomatic. 7. Coronary artery disease, prior history of stent. 8. Essential hypertension. 9. Hyperlipidemia. 10.Primary osteoarthritis. 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 PLAN: 1. Will send out stool for ova and parasites. 2. For Coumadin toxicity, we will give 5 mg of vitamin K IV piggyback with telemetry monitoring. The patient is on a clear liquid diet. The patient is due to see Dr. Henderson, we will consult Gastroenterology. 3. Other home medications to be resumed. 4. We will give IV fluids and repeat electrolytes in the morning. 5. We will also check the patient's TSH, free T4 to make sure there is no over replacement. 6. Care was discussed with the patient. Questions were answered. Copy to Dr. Rosales. At this point, patient will probably need a more than 2 night stay to get his current problems sorted out. MMODL / IJN: [id number] /
[2018-01-27] MEDS: LACTATED RINGERS 1,000 ML IV SCH ×4 (00:02→18:26)
[2018-01-27] MEDS: HYDROmorphone 1 MG/ML 1 ML SYRINGE IVP PRN ×4 (00:13→18:26)
[2018-01-27] MEDS: OLANZapine 5 MG TAB PO SCH ×2 (00:15→20:04)
[2018-01-27] MEDS: ONDANSETRON 4 MG/2 ML VIAL IVP PRN (04:25)
[2018-01-27] MEDS: PANTOPRAZOLE 40 MG TABLET PO SCH (06:23)
[2018-01-27] MEDS ORDERED: LEVOTHYROXINE 100 MCG TAB PO SCH (06:30)
[2018-01-27 07:29] LABS: Basophils % (A) 1 %; Eosinophils # (A) 0.2 k/uL (0-0.7); Eosinophils % (A) 3 %; HCT 45.4 % (39.0-53.0); HGB 14.7 gm/dL (13.0-17.5); Lymphocytes # (A) 1.8 k/uL (1.0-4.8); Lymphocytes % (A) 25 %; MCH 29.9 pg (25.0-35.0); MCHC 32.3 g/dL (31.0-37.0); MCV 92.4 fL (80.0-100.0); Mean Platelet Volume 7.1; Monocytes # (A) 0.7 k/uL (0-1.0); Monocytes % (A) 9 %; Neutrophils # (A) 4.3 k/uL (1.3-7.7); Neutrophils % (A) 60 %; Platelet Count 199 k/uL (150-450); RBC 4.92 m/uL (4.30-5.90); WBC 7.2 k/uL (3.8-10.6)
[2018-01-27 07:33] LABS: INR 3.2 (<1.2); Prothrombin Time 28.5 sec (9.0-12.0)
[2018-01-27 07:54] LABS: Albumin 3.4 g/dL (3.5-5.0); Potassium 4.3 mmol/L (3.5-5.1); Total Bilirubin 0.9 mg/dL (0.2-1.3); Total Protein 6.1 g/dL (6.3-8.2)
[2018-01-27] MEDS: ALLOPURINOL 100 MG TAB PO SCH (09:40)
[2018-01-27] MEDS: URSODIOL 300 MG CAP PO SCH (18:26)
[2018-01-27] MEDS: BISOPROLOL-HCTZ 10-6.25 MG 1 EACH TAB PO SCH (20:04)
[2018-01-27] MEDS: ATORVASTATIN 40 MG TAB PO SCH (20:04)
[2018-01-27] MEDS: ASPIRIN 81 MG PO SCH (20:04)
--- NOTE | 2018-01-27 20:51 | PN ---
PROGRESS NOTE DATE OF SERVICE: 01/27/2018 PRESENTING COMPLAINT: Abdominal pain, nausea, vomiting. INTERVAL HISTORY: This patient was admitted with persistent nausea, vomiting, Coumadin toxicity, weight loss, now found to have over-replacement with Synthroid and chronic diarrhea. Patient's diarrhea is somewhat better. Feels more rested. Nausea and heaving are somewhat better. Lying in bed. Seen by GI. Awaiting their dictation. REVIEW OF SYSTEMS: Done for constitutional, cardiovascular, GI, pulmonary; relevant findings as above. CURRENT MEDICATIONS: Reviewed. They include IV fluids at 100 mL/hour. PHYSICAL EXAMINATION: Temperature 97.1, pulse 62, respiration 16, blood pressure 137/83, pulse ox 95% on room air. GENERAL APPEARANCE: Lying in bed. More rested. EYES: Right eye is absent. Left eye is normal. Conjunctiva normal. HEENT: External appearance of nose and ears normal. Oral cavity dry. NECK: JVD unable to assess. Mass not palpable. RESPIRATORY: Effort increased. LUNGS: Decreased breath sounds. CARDIOVASCULAR: First and second sounds normal. No edema. ABDOMEN: Soft. Mild tenderness. No guarding or rigidity. Liver and spleen not palpable. Divarication of recti. PSYCHIATRY: Alert and oriented x3. Mood and affect normal. INVESTIGATIONS: White count 7.2, INR 3.2, potassium 4.3, BUN 34, creatinine 1.33. TSH 0.8. ASSESSMENT: 1. Persistent nausea; may be from severe gastritis. Patient may need EGD. Awaiting input from GI. 2. Weight loss of 54 pounds with poor oral intake secondary to over-replacement with Synthroid secondary hyperparathyroidism. 3. Coumadin toxicity with no evidence of bleeding. INR coming down. 4. Hypothyroidism with over-replacement. 5. Acute renal failure, likely prerenal, with some improvement. 6. Sigmoid diverticulosis, asymptomatic. 7. Coronary artery disease with prior history of stent. 8. Essential hypertension. 9. Hyperlipidemia. 10.Primary osteoarthritis. 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 PLAN: Will resume patient's Coumadin on a smaller dose. The patient's Synthroid will be cut back to 50 mcg a day. Continue with IV fluids. The patient may need an EGD. Will discuss with GI. Repeat electrolytes in the morning. Care was discussed with the patient. MMODL / IJN: [id number] /
--- NOTE | 2018-01-27 23:40 | P.CONS ---
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 The patient reports that he has been having frequent nausea over the past 2-3 months. Over the past 2-3 days he reports vomiting with any oral intake resulting in dehydration. He denies any hematemesis or coffee-ground emesis. He also reports frequent diarrhea, with 5- 6 loose watery bowel movements daily. He denies any associated hematochezia or melena. He denies any fevers or chills. He does report abdominal pain which he describes as diffuse across his abdomen. The patient does have a history of GERD and is on omeprazole twice daily at home. On presentation to the hospital his liver enzymes and CBC were normal. Testing for Clostridium difficile was also negative. The patient had a ultrasound of the abdomen which was significant only for hepatic steatosis. His last upper endoscopy was in November 2014 and significant only for hiatal hernia and gastritis. He did have colonoscopy in evaluation of his diarrhea in 12/2017 during which colitis of the sigmoid colon was noted in the patient was treated with Flagyl. He reports that he is not sure of her being told by the SMA thrombosis occurred. He reports that at that time he had 16 inches of small bowel removed. Review of Systems REVIEW OF SYSTEMS: CARDIOPULMONARY: Denies chest pain or shortness of breath. GENITOURINARY: No dysuria or hematuria. MUSCULOSKELETAL: She reports a general feeling of weakness with symptoms but no specific musculoskeletal impairment.. SKIN: Denies any new rashes or lesions, jaundice or pallor. PSYCHIATRIC: Denies any depression or anxiety. NEUROLOGY: Denies headache, denies any new focal deficits. EARS: No tinnitus, discharge or new hearing loss. NOSE: No discharge or congestion. EYES: No pain in eyes or change in vision. No vision on the right side which is not new. CONSTITUTIONAL: He reports 50 pounds of weight loss with his symptoms. No fever , chills, night sweats. 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 BLOOD CLOTS X3 IN STOMACH 08/2016. C/O NAUSEA X6 MO, NO APPETITE, WGT LOSS 40#; BLOOD IN STOOL 01/05/18. DIARRHEA FOR LAST MO.hx ischemic colitis( sx) History of Any Multi-Drug Resistant Organisms: None Reported Past Surgical History: Appendectomy, Bowel Resection, Heart Catheterization With Stent, Tonsillectomy Additional Past Surgical History / Comment(s): RT EYE EXTRACTED. BOWEL RESECTION, REMOVAL 16 and EXC 3 BLOOD CLOTS", PUT IN 2 STENTS.colonoscopy Past Anesthesia/Blood Transfusion Reactions: No Reported Reaction Date of Last Stent Placement:: 2014 Smoking Status: Current every day smoker - Past Family History Father Family Medical History: Cancer Sister(s) Family Medical History: Coronary Artery Disease (CAD) Medications and Allergies Home Medications Medication Instructions Recorded Confirmed Type Aspirin EC [Ecotrin Low Dose] 81 mg PO HS 11/05/17 01/26/18 History Atorvastatin [Lipitor] 40 mg PO HS 11/05/17 01/26/18 History Bisoprolol-Hctz 10-6.25 mg [Ziac 1 tab PO HS 11/05/17 01/26/18 History 10-6.25] Levothyroxine Sodium [Synthroid] 100 mcg PO DAILY 11/05/17 01/26/18 History Lisinopril [Zestril] 20 mg PO HS 11/05/17 01/26/18 History OLANZapine [ZyPREXA] 15 mg PO HS 11/05/17 01/26/18 History Omeprazole 20 mg PO BID 11/05/17 01/26/18 History Warfarin [Coumadin] 1 mg PO MOFR 11/05/17 01/26/18 History Warfarin [Coumadin] 5 mg PO HS 11/05/17 01/26/18 History clomiPRAMINE HCL 75 mg PO DAILY 11/05/17 01/26/18 History Allopurinol [Zyloprim] 100 mg PO DAILY 01/26/18 01/26/18 History Colchicine 0.6 mg PO TID PRN 01/26/18 01/26/18 History Allergies Allergy/AdvReac Type Severity Reaction Status Date / Time morphine Allergy Severe Itching Verified 01/26/18 12:34 Physical Exam Vitals: Vital Signs Temp Pulse Resp BP Pulse Ox 01/27/18 19:59 97.5 F L 60 20 137/86 97 01/27/18 16:00 97.4 F L 57 L 16 112/72 95 01/27/18 11:41 97.1 F L 62 16 137/83 95 01/27/18 11:35 65 01/27/18 08:00 96.8 F L 48 L 16 111/67 98 01/27/18 04:00 97.5 F L 53 L 20 116/69 97 Intake and Output 01/27/18 01/27/18 01/28/18 14:59 22:59 06:59 Intake Total 1210 100 Balance 1210 100 Intake: Intake, IV Titration 750 Amount Lactated Ringers 1,000 ml 150 @ 150 mls/hr IV .Q6H40M JACQUI Rx#:[id number] Sodium Chloride 0.9% 1, 600 000 ml @ 100 mls/hr IV . Q10H JACQUI Rx#:[id number] Oral 460 100 Other: # Bowel Movements 3 On physical examination, patient appears comfortable in no apparent distress. HEAD: Normocephalic, atraumatic. EYES: No scleral icterus. No conjunctival injection. The patient does not have a right eye area MOUTH: No lesions, tongue midline. NECK: Trachea midline, no gross abnormalities. CHEST: Clear to auscultation with no wheezing or rhonchi appreciated. HEART: Regular rate and rhythm. ABDOMEN: Soft, obese. Bowel sounds are positive. No organomegaly. No guarding or rigidity. EXTREMITIES: No pedal edema or rashes. SKIN: No rashes, no jaundice. NEUROLOGIC: Alert and oriented x3. No focal deficits. Results CBC & Chem 7: 01/27/18 07:01 01/27/18 07:01 Labs: Abnormal Lab Results - Last 24 Hours (Table) 01/27/18 01/27/18 Range/Units 07:01 07:01 PT 28.5 H (9.0-12.0) sec INR 3.2 H (<1.2) BUN 34 H (9-20) mg/dL Creatinine 1.33 H (0.66-1.25) mg/dL Glucose 109 H (74-99) mg/dL Total Protein 6.1 L (6.3-8.2) g/dL Albumin 3.4 L (3.5-5.0) g/dL US - abdomen: report reviewed (Ultrasound abdomen significant only for hepatic steatosis.) Assessment and Plan (1) Nausea vomiting and diarrhea Narrative/Plan: Patient reports 5-6 loose bowel movements which has been occurring for months and has been evaluated with a colonoscopy which was significant only for some inflammation of the sigmoid colon and was treated with Flagyl. Nausea has also been present for months however vomiting developed over the past 3-4 days. Given the chronic nature of his symptoms is less likely that this is secondary to a virus/infection. There may be a component of bile salt diarrhea given his prior surgery and loss of small bowel with intact colon. We'll also rule out any upper GI source such as peptic ulcer disease, erosive gastritis/esophagitis or other etiology associated with his symptoms. Current Visit: Yes Status: Acute Code(s): R11.2 - NAUSEA WITH VOMITING, UNSPECIFIED; R19.7 - DIARRHEA, UNSPECIFIED SNOMED Code(s): 7514897 (2) Abdominal pain Narrative/Plan: Likely related to above. Current Visit: Yes Status: Acute Code(s): R10.9 - UNSPECIFIED ABDOMINAL PAIN SNOMED Code(s): 27645782 (3) Dehydration Narrative/Plan: Secondary to above. Current Visit: Yes Status: Acute Code(s): E86.0 - DEHYDRATION SNOMED Code( s): 64935801 Plan: Supportive care Okay for diet as tolerated Continue fluid and electrolyte replacement Will add ursodeoxycholic acid for empiric treatment of bile salt diarrhea We'll plan for upper endoscopy in the morning, nothing by mouth after midnight Testing for Clostridium difficile negative Continue PPI therapy Thank you for allowing us to dissipate in the care of this patient, we will continue to follow
[2018-01-28] MEDS: LACTATED RINGERS 1,000 ML IV SCH ×3 (01:49→16:39)
[2018-01-28 06:38] LABS: Calcium 8.8 mg/dL (8.4-10.2); INR 1.4 (<1.2); Potassium 4.3 mmol/L (3.5-5.1)
[2018-01-28 06:39] LABS: Prothrombin Time 13.4 sec (9.0-12.0)
[2018-01-28] MEDS: PANTOPRAZOLE 40 MG TABLET PO SCH (08:47)
[2018-01-28] MEDS: ALLOPURINOL 100 MG TAB PO SCH (08:48)
[2018-01-28] MEDS: URSODIOL 300 MG CAP PO SCH ×2 (08:48→16:39)
[2018-01-28] MEDS ORDERED: LIDOCAINE 1% INJ 10MG/ML (20 ML MDV) ONE (12:13)
[2018-01-28] MEDS ORDERED: PROPOFOL 10 MG/ML 20 ML VIAL IV ONE (12:13)
[2018-01-28] MEDS ORDERED: IV FLUID CONTINUATION 1,000 ML IV ONE (12:16)
--- NOTE | 2018-01-28 13:26 | P.PCN ---
Date of Procedure: 01/28/18 Description of Procedure: BRIEF HISTORY: Patient is a 57-year-old, pleasant, male with a medical history significant for coronary artery disease, small bowel resection after SMA thrombosis and a recent history of chronic diarrhea with worsening nausea and vomiting prior to presentation. The patient did undergo a colonoscopy in 2017 which was significant for sigmoid inflammation and treated with Flagyl. On this presentation he reports multiple episodes of vomiting of unknown etiology. He is on PPI therapy at home with omeprazole 20 mg twice a day. He denies any sick contacts, recent changes in medications or unusual travel or food. Ultrasound done in evaluation was significant only for hepatic steatosis. The patient also reports that he has had intermittent episodes of esophageal dysphagia but has never required hospitalization for food impaction. PROCEDURE PERFORMED: Esophagogastroduodenoscopy with cold biopsy. PREOPERATIVE DIAGNOSIS: Intractable nausea and vomiting, esophageal dysphagia. ESTIMATED BLOOD LOSS: Minimal. IV sedation per anesthesia. PROCEDURE: After informed consent was obtained, the patient was brought into the endoscopy unit. IV sedation was administered by Anesthesia under continuous monitoring. Initially the Olympus GIF-180 video endoscope was inserted into the mouth. Esophagus intubated without any difficulty. It was gradually advanced into the stomach and duodenum and carefully examined. The bulb and the second part of the duodenum appeared normal. Biopsies of the duodenum were taken to rule out celiac sprue. The scope at this time was withdrawn to the stomach, adequately insufflated with air, and upon careful examination, mucosa of the antrum, body, cardia and the fundus appeared grossly normal. Mild scattered erythema of the antrum and body suggestive of gastritis were noted with biopsies taken. The scope was then withdrawn into the esophagus. The GE junction was located at 38 cm from the incisors. The esophagus appeared normal. Biopsies of the midesophagus were taken to rule out eosinophilic esophagitis. IMPRESSION: 1. Gastritis, biopsied. 2. Biopsies of duodenum given history of diarrhea to rule out sprue and midesophagus in the setting of dysphagia to rule out EOE. RECOMMENDATIONS: The findings of this examination were discussed with the patient. Okay to restart diet as tolerated. Continue PPI therapy. Await pathology.
--- NOTE | 2018-01-28 20:40 | PN ---
PROGRESS NOTE DATE OF SERVICE: January 28, 2018. PRESENTING COMPLAINT: Abdominal pain, nausea, vomiting. INTERVAL HISTORY: Patient admitted with persistent nausea, vomiting, Coumadin toxicity, weight loss. Was also found to have over replacement of Synthroid and chronic diarrhea. Diarrhea is greatly improved. Patient did go for EGD today that is showing gastritis. Overall feeling much better. REVIEW OF SYSTEMS: Done for constitutional, cardiovascular, GI, pulmonary and relevant findings as above. CURRENT MEDICATIONS: Reviewed that include Protonix and Actigall. PHYSICAL EXAMINATION: VITAL SIGNS: Temperature 97.4, pulse 63, respiratory rate 16, blood pressure 120/83, pulse ox 97 percent on room air. GENERAL APPEARANCE: Sitting up, more comfortable. EYES: Right eye is absent. Left eye is normal. Conjunctivae normal. HEENT: External appearance of nose and ears normal. Oral cavity normal. NECK JVD not raised. Mass not palpable. RESPIRATORY: Effort increased. LUNGS: Decreased breath sounds. CARDIOVASCULAR: 1st and 2nd sounds normal. No edema. ABDOMEN soft. No tenderness. Liver and spleen not palpable. Divarication of recti. PSYCH: Alert and oriented x3. Mood and affect normal. INVESTIGATION: EGD shows gastritis. INR is 1.4. Potassium 4.3, BUN 20, creatinine 1.11. ASSESSMENT: 1. Persistent nausea from severe gastritis. 2. Weight loss of more than 54 pounds from poor oral intake and over replacement with Synthroid. 3. Coumadin toxicity with no evidence of bleeding, status post vitamin K. Coumadin has been resumed. 4. Hypothyroidism with over replacement. 5. Acute renal failure likely prerenal with near resolution. 6. Sigmoid diverticulosis, asymptomatic. 7. Coronary artery disease with prior history of stent. 8. Essential hypertension. 9. Hyperlipidemia. 10.Primary osteoarthritis. 11.Absent right eye, chronic diarrhea, currently much improved. PLAN: Continue with the new dose of Synthroid. IV fluids can be discontinued when the diet is advanced. Care was discussed with the patient. Repeat INR in the morning. MMODL / IJN: [id number] /
[2018-01-28 21:15] VITALS: RESP 18
[2018-01-28] MEDS: ASPIRIN 81 MG PO SCH (21:19)
[2018-01-28] MEDS: ATORVASTATIN 40 MG TAB PO SCH (21:19)
[2018-01-28] MEDS: OLANZapine 5 MG TAB PO SCH (21:20)
[2018-01-28] MEDS: BISOPROLOL-HCTZ 10-6.25 MG 1 EACH TAB PO SCH (23:21)
[2018-01-29] MEDS: PANTOPRAZOLE 40 MG TABLET PO SCH (06:24)
[2018-01-29] MEDS: URSODIOL 300 MG CAP PO SCH (06:24)
[2018-01-29] MEDS ORDERED: LEVOTHYROXINE 50 MCG TAB PO SCH (06:30)
[2018-01-29 07:09] LABS: Basophils % (A) 1 %; Eosinophils # (A) 0.2 k/uL (0-0.7); Eosinophils % (A) 3 %; HCT 42.7 % (39.0-53.0); Lymphocytes # (A) 1.5 k/uL (1.0-4.8); Lymphocytes % (A) 24 %; MCH 29.7 pg (25.0-35.0); MCHC 32.8 g/dL (31.0-37.0); MCV 90.5 fL (80.0-100.0); Monocytes # (A) 0.6 k/uL (0-1.0); Monocytes % (A) 9 %; Neutrophils # (A) 3.9 k/uL (1.3-7.7); Neutrophils % (A) 61 %; Platelet Count 168 k/uL (150-450); RBC 4.72 m/uL (4.30-5.90); RDW 13.5 % (11.5-15.5); WBC 6.3 k/uL (3.8-10.6)
[2018-01-29 07:14] LABS: Anion Gap 7 mmol/L; Blood Urea Nitrogen 18 mg/dL (9-20); Calcium 9.1 mg/dL (8.4-10.2); Carbon Dioxide 29 mmol/L (22-30); Chloride 103 mmol/L (98-107); Glucose 100 mg/dL (74-99); Potassium 4.4 mmol/L (3.5-5.1); Sodium 139 mmol/L (137-145)
[2018-01-29 07:15] LABS: INR 1.3 (<1.2); Prothrombin Time 12.1 sec (9.0-12.0)
[2018-01-29] MEDS: ALLOPURINOL 100 MG TAB PO SCH (08:41)
--- NOTE | 2018-01-29 10:09 | P.PN ---
Subjective Progress Note Date: 01/29/18 Principal diagnosis: Nausea vomiting diarrhea 57-year-old gentleman with intractable nausea vomiting diarrhea. Diarrhea has improved with ursodiol. Status post EGD yesterday with evidence of gastritis biopsies pending. Denies abdominal pain. White count 6.3. Hemoglobin 14. INR 1.3. Afebrile. Anticoagulation on hold. Objective - Vital Signs Vital signs: Vital Signs Temp 96.2 F L 01/29/18 04:00 Pulse 61 01/29/18 04:00 Resp 18 01/29/18 04:00 BP 144/79 01/29/18 04:00 Pulse Ox 99 01/29/18 04:00 Intake & Output 01/28/18 01/29/18 01/29/18 18:59 06:59 18:59 Intake Total 440 360 Output Total 400 1200 Balance 40 -1200 360 Weight 96.6 kg Intake: IV 100 Oral 340 360 Output: Urine 400 1200 Other: Voiding Method Toilet # Voids 1 - Exam General appearance: The patient is alert, oriented, in no acute distress. HET: Head is normocephalic and atraumatic. Pupils are equal and reactive. Oropharynx is clear without lesions. Neck: Supple without lymphadenopathy. Trachea midline. Heart: S1 S2. Regular rate and rhythm. Lungs: No crackles or wheezes are heard. Abdomen: Soft, nontender, nondistended with bowel sounds. No peritoneal signs. No palpable organomegaly or masses. Extremities: Normal skin color and turgor. No cyanosis, rash, ulceration, clubbing, or edema. Radial and pedal pulses are 2/4 bilaterally. Neurological: No focal deficits. Strength and sensation are grossly intact. - Labs CBC & Chem 7: 01/29/18 06:20 01/29/18 06:20 Labs: Abnormal Lab Results - Last 24 Hours (Table) 01/29/18 01/29/18 Range/Units 06:20 06:20 PT 12.1 H (9.0-12.0) sec INR 1.3 H (<1.2) Glucose 100 H (74-99) mg/dL Assessment and Plan (1) Nausea vomiting and diarrhea Narrative/Plan: Status post EGD with evidence of gastritis biopsies pending. Diarrhea has resolved with ursodiol 300 mg twice daily. Current Visit: Yes Status: Acute Code(s): R11.2 - NAUSEA WITH VOMITING, UNSPECIFIED; R19.7 - DIARRHEA, UNSPECIFIED SNOMED Code(s): 7501253 (2) Abdominal pain Current Visit: Yes Status: Acute Code(s): R10.9 - UNSPECIFIED ABDOMINAL PAIN SNOMED Code(s): 84154132 (3) Dehydration Current Visit: Yes Status: Acute Code(s): E86.0 - DEHYDRATION SNOMED Code( s): 97135364 Plan: 1. Agreeable for discharge. From a GI standpoint may restart anticoagulation. Recommend ursodiol 300 mg twice daily upon discharge. Return to office in 2- 3 weeks. Omeprazole 20 mg twice a day. Assessment and plan a care discussed with Dr. Padilla
--- NOTE | 2018-01-29 10:09 | P.CONS ---
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 BLOOD CLOTS X3 IN STOMACH 08/2016. C/O NAUSEA X6 MO, NO APPETITE, WGT LOSS 40#; BLOOD IN STOOL 01/05/18. DIARRHEA FOR LAST MO.hx ischemic colitis( sx) History of Any Multi-Drug Resistant Organisms: None Reported Past Surgical History: Appendectomy, Bowel Resection, Heart Catheterization With Stent, Tonsillectomy Additional Past Surgical History / Comment(s): RT EYE EXTRACTED. BOWEL RESECTION, REMOVAL 16 and EXC 3 BLOOD CLOTS", PUT IN 2 STENTS.colonoscopy Past Anesthesia/Blood Transfusion Reactions: No Reported Reaction Date of Last Stent Placement:: 2014 Smoking Status: Current every day smoker - Past Family History Father Family Medical History: Cancer Sister(s) Family Medical History: Coronary Artery Disease (CAD) Medications and Allergies Home Medications Medication Instructions Recorded Confirmed Type Aspirin EC [Ecotrin Low Dose] 81 mg PO HS 11/05/17 01/26/18 History Atorvastatin [Lipitor] 40 mg PO HS 11/05/17 01/26/18 History Bisoprolol-Hctz 10-6.25 mg [Ziac 1 tab PO HS 11/05/17 01/26/18 History 10-6.25] Levothyroxine Sodium [Synthroid] 100 mcg PO DAILY 11/05/17 01/26/18 History Lisinopril [Zestril] 20 mg PO HS 11/05/17 01/26/18 History OLANZapine [ZyPREXA] 15 mg PO HS 11/05/17 01/26/18 History Omeprazole 20 mg PO BID 11/05/17 01/26/18 History Warfarin [Coumadin] 1 mg PO MOFR 11/05/17 01/26/18 History Warfarin [Coumadin] 5 mg PO HS 11/05/17 01/26/18 History clomiPRAMINE HCL 75 mg PO DAILY 11/05/17 01/26/18 History Allopurinol [Zyloprim] 100 mg PO DAILY 01/26/18 01/26/18 History Colchicine 0.6 mg PO TID PRN 01/26/18 01/26/18 History Allergies Allergy/AdvReac Type Severity Reaction Status Date / Time morphine Allergy Severe Itching Verified 01/26/18 12:34 Physical Exam Vitals: Vital Signs Temp Pulse Resp BP Pulse Ox 01/29/18 04:00 96.2 F L 61 18 144/79 99 01/29/18 00:00 97.8 F 60 18 135/83 97 01/28/18 20:00 97.9 F 61 18 118/74 97 01/28/18 16:00 97.7 F 66 16 143/73 96 01/28/18 11:17 97.4 F L 63 16 124/83 97 Intake and Output 01/28/18 01/29/18 01/29/18 22:59 06:59 14:59 Intake Total 240 360 Output Total 400 800 Balance -160 -800 360 Intake: Oral 240 360 Output: Urine 400 800 Other: Voiding Method Toilet Toilet # Voids 1 1 Weight 96.9 kg 96.6 kg Results CBC & Chem 7: 01/29/18 06:20 01/29/18 06:20 Labs: Abnormal Lab Results - Last 24 Hours (Table) 01/29/18 01/29/18 Range/Units 06:20 06:20 PT 12.1 H (9.0-12.0) sec INR 1.3 H (<1.2) Glucose 100 H (74-99) mg/dL Assessment and Plan (1) Nausea vomiting and diarrhea Current Visit: Yes Status: Acute Code(s): R11.2 - NAUSEA WITH VOMITING, UNSPECIFIED; R19.7 - DIARRHEA, UNSPECIFIED SNOMED Code(s): 6102310 (2) Abdominal pain Current Visit: Yes Status: Acute Code(s): R10.9 - UNSPECIFIED ABDOMINAL PAIN SNOMED Code(s): 64638483 (3) Dehydration Current Visit: Yes Status: Acute Code(s): E86.0 - DEHYDRATION SNOMED Code( s): 80048577
[2018-01-29 10:56] VITALS: BP 129/74; PULSE 79; TEMP 96.5
--- NOTE | 2018-01-30 00:29 | DS ---
DISCHARGE SUMMARY DATE OF ADMISSION: 01/26/2018. DATE OF DISCHARGE: 01/29/2018. FINAL DIAGNOSES: 1. Coumadin toxicity, no evidence of bleeding, present on admission. INR greater than 10. 2. Weight loss, probably from over replacement with Synthroid, that is iatrogenic hyperthyroidism. 3. Persistent nausea from severe gastritis. 4. Severe acute on chronic gastritis. 5. Hypothyroidism with over replacement. 6. Acute renal failure that is prerenal from decreased oral intake. 7. Sigmoid diverticulosis asymptomatic. 8. Coronary artery disease, prior history of stent. 9. Essential hypertension. 10.Hyperlipidemia. 11.Primary osteoarthritis. 12.Absent right eye. HOSPITAL COURSE: This patient presented with multitude of symptoms, nausea, abdominal discomfort, intermittent diarrhea, weight loss, feeling miserable, going on for quite some time. The patient recently was treated for focal colitis by Dr. Kim, given a course of Flagyl. The patient was found to be over replaced with Synthroid as TSH was down to 0.8. Dose of Synthroid was cut back. The patient's TSH needs to be checked again in about 4 weeks. The patient also was in acute renal failure with a BUN and creatinine of 41 and 1.89. At the time of discharge BUN and creatinine down to 80 and 0.99. The patient's INR was more than 10 at the time of presentation. Did receive some vitamin K and INR had come down nicely. Coumadin was restarted. The patient did undergo EGD by Dr. Padilla. The patient is found to have significant gastritis. The patient felt remarkably well by the time of discharge. Symptoms were greatly improved. Tolerating a diet. PHYSICAL EXAMINATION: Temperature 96.5, pulse 79, respiratory rate 16, blood pressure 129/74, pulse ox 98 percent on room air. GENERAL APPEARANCE: Sitting up, comfortable. LUNGS: Slightly decreased breath sounds. ABDOMEN: Soft, nontender. Absent right eye. CONSULTATIONS: Dr. Padilla from GI. DISCHARGER MEDICATIONS: 1. Aspirin 81 mg at bedtime. 2. Lipitor 40 mg at bedtime. 3. Bisoprolol hydrochlorothiazide /6.25 one tablet p.o. at bedtime. 4. Zestril 20 mg at bedtime. 5. Zyprexa 50 mg at bedtime. 6. Omeprazole 20 mg b.i.d. 7. Clomipramine 75 mg daily. 8. Allopurinol 100 mg p.o. daily. 9. Synthroid 100 mcg every 48 hours. 10.Actigall 300 mg p.o. b.i.d. 11.Coumadin 2.5 mg at bedtime. INR on 02/02/2018. DISCUSSION AND DISCHARGE PLANNING: More than 35 minutes. FOLLOWUP: 1. Follow up with Dr. Rosales on 02/04/2018. 2. Follow up with Dr. Padilla on 03/06/2018. MMOLIVIAL / IJN: [id number] /
== END 2018-01-29 14:39 | disposition home or self-care (01) | DRG 392 ==
LOC: EC 11:58 → 6SEL 14:38 → OBSVTOIN 22:10
PROVIDERS: ADMIT Hospitalist; ATTEND Hospitalist
PROC: 0DB78ZX Excision of Stomach, Pylorus, Via Natural or Artificial Opening Endoscopic, Diagnostic (ICD-10-PCS; 2018-01-28)
PROC: 0DB68ZX Excision of Stomach, Via Natural or Artificial Opening Endoscopic, Diagnostic (ICD-10-PCS; 2018-01-28)
PROC: 0DB28ZX Excision of Middle Esophagus, Via Natural or Artificial Opening Endoscopic, Diagnostic (ICD-10-PCS; 2018-01-28)
PROC: 0DB98ZX Excision of Duodenum, Via Natural or Artificial Opening Endoscopic, Diagnostic (ICD-10-PCS; principal; 2018-01-28 12:00)
DX: K29.00 Acute gastritis without bleeding (principal); N17.9 Acute kidney failure, unspecified; N25.81 Secondary hyperparathyroidism of renal origin; K91.2 Postsurgical malabsorption, not elsewhere classified; T60.4X1A Toxic effect of rodenticides, accidental (unintentional), initial encounter; R63.4 Abnormal weight loss; Z68.36 Body mass index [BMI] 36.0-36.9, adult; E05.80 Other thyrotoxicosis without thyrotoxic crisis or storm; T38.1X5A Adverse effect of thyroid hormones and substitutes, initial encounter; E03.9 Hypothyroidism, unspecified; E78.5 Hyperlipidemia, unspecified; E86.0 Dehydration; F17.200 Nicotine dependence, unspecified, uncomplicated; H40.9 Unspecified glaucoma; I10 Essential (primary) hypertension; I25.10 Atherosclerotic heart disease of native coronary artery without angina pectoris; K21.9 Gastro-esophageal reflux disease without esophagitis; K44.9 Diaphragmatic hernia without obstruction or gangrene; K52.9 Noninfective gastroenteritis and colitis, unspecified; K57.30 Diverticulosis of large intestine without perforation or abscess without bleeding; K76.0 Fatty (change of) liver, not elsewhere classified; M19.91 Primary osteoarthritis, unspecified site; R13.14 Dysphagia, pharyngoesophageal phase; R79.1 Abnormal coagulation profile; Z79.01 Long term (current) use of anticoagulants; Z82.49 Family history of ischemic heart disease and other diseases of the circulatory system; Z86.718 Personal history of other venous thrombosis and embolism; Z90.01 Acquired absence of eye; Z95.5 Presence of coronary angioplasty implant and graft; Z97.0 Presence of artificial eye; Z90.49 Acquired absence of other specified parts of digestive tract; F41.9 Anxiety disorder, unspecified; Z80.9 Family history of malignant neoplasm, unspecified; Z79.82 Long term (current) use of aspirin; Z79.890 Hormone replacement therapy; Z79.899 Other long term (current) drug therapy
CPT/HCPCS: 36415; 43239; 74018; 76705; 80048; 80053; 81001; 82150; 82550; 82553; 83605; 83690; 84443; 84484; 85025; 85610; 85730; 87324; 88305; 93005; 96361; 96374; 96375; 96376; 99285

== ENCOUNTER → 2018-02-11 | Outpatient (CLI) | payer OTHER ==
--- NOTE | 2018-02-11 14:13 | CT ---
EXAMINATION TYPE: CT angio abdomen pelvis DATE OF EXAM: 02/11/2018 COMPARISON: 12/10/2017 HISTORY: 57-year-old male Acute (reversible) ischemia of intestine TECHNIQUE: Contiguous axial scanning of the abdomen and pelvis before and after administration of 100 ml Isovue 370 IV contrast. Coronal/sagittal MIP reconstructions performed. 3-D reconstructions gene rated on a dedicated independent workstation. CT DLP: 1686.9 mGycm Automated exposure control for dose reduction was used. FINDINGS: Heart normal size without pericardial effusion. Some strandy dependent atelectasis at the lung bases without pleural effusion. Arterial phase imaging of the liver shows a stable subcentimeter hypodensity segment 3 near the falci form ligament, too small for CT characterization, likely cyst. Gallbladder, adrenal glands, kidneys, spleen, and pancreas appear within normal limits. No dilated small bowel, free fluid, or free air. Staple line along the right perimedian lower abdominal small bowel loop which is patulous with some m ottled debris within suggesting stasis. No dilated small bowel otherwise seen. No free fluid or free air. Mild stool burden. No pericolonic inflammatory change. Redemonstrated rectus diastases measuring 13.1 cm wide as well as focal masslike soft tissue thickeni ng along the anterior midline just below the level of the diastases measuring 4.1 x 1.9 cm, unchanged . -Normal caliber of the abdominal aorta and iliac arteries with mild atherosclerotic calcifications. -Celiac axis is patent. -Proximal SMA stent is redemonstrated and is patent. -Redemonstrated focal soft tissue thickening/stranding adjacent to the SMA within the mid mesentery a pproximately 5 cm below the SMA origin, refer to axial images 29 through 32. The appearance is unchan ged for 2 months. -Russell renal arteries. No mesenteric or retroperitoneal lymphadenopathy. Bladder partially distended. No abnormal fluid collection in the pelvis or pelvic lymphadenopathy. Bones: Mild degenerative changes at the hips and SI joints. Scattered mild degenerative disc disease is also present. No osseous destructive process. IMPRESSION: 1. PATENT VISCERAL ARTERIES. PROXIMAL SMA STENT IS ALSO WIDELY PATENT. 2. STABLE SOFT TISSUE THICKENING/STRANDING ALONG THE SMA, 5 CM BELOW ITS ORIGIN. GIVEN STABILITY FOR 2 MONTHS, THIS MAY REPRESENT AN AREA OF CHRONIC SCARRING. BELOW THIS LEVEL, WE DO NOTE POSTOPERATIVE CHANGES OF PRIOR SMALL BOWEL RESECTION AND REANASTOMOSIS. 3. REDEMONSTRATED RECTUS DIASTASES AND STABLE FOCAL MASSLIKE SOFT TISSUE THICKENING JUST BELOW THE DI ASTASES MEASURING 4.1 CM, LIKELY MASSLIKE SCAR TISSUE.
== END | disposition home or self-care (01) ==
LOC: RADCTMAIN 12:52
PROVIDERS: ATTEND Family Medicine
DX: L90.5 Scar conditions and fibrosis of skin (principal); K63.89 Other specified diseases of intestine; M62.08 Separation of muscle (nontraumatic), other site; K55.059 Acute (reversible) ischemia of intestine, part and extent unspecified; Z98.890 Other specified postprocedural states
CPT/HCPCS: 74174; Q9967

== ENCOUNTER → 2018-03-12 | Outpatient (CLI) | payer OTHER ==
--- NOTE | 2018-03-12 13:57 | NM ---
EXAMINATION TYPE: NM gastric emptying study DATE OF EXAM: 03/12/2018 COMPARISON: CT 02/11/2018 HISTORY: Nausea Following administration of 2.1 mCi Tc 99m Sulfur Colloid with 1 cup of oatmeal projection images of the abdomen were obtained 7 minutes post ingestion. When possible, both anterior and posterior projec tion images were obtained to allow the calculation of the geometric mean activity. Clearance: 59 % Half-life: 50 min Gastroesophageal reflux: None IMPRESSION: Gastric emptying: Normal Gastroesophageal reflux: None Gastric emptying normal percentage values: 30 minutes: <70% of retention (> 30% emptying) suggests abnormally fast emptying. 60 minutes: <90% retention (>10% emptying) is normal; less than 30% retention (>70% emptying) suggest s abnormally rapid emptying. 90 minutes: <65% retention (> 35% emptying) is normal. 120 minutes: <60% retention (> 40% emptying) is normal. 180 minutes: <30% retention (> 70% emptying) is normal. Gastric emptying T-1/2: Solid: The normal range is 60-105 minutes Liquid only: Normal range is 10-45 minutes. Liquid only-children: At 60 minutes, normal range is 44-58 % . Liquid only-infants: At 60 minutes, normal range is 32-64 %. Additional references: Gastric Emptying Scintigraphy [email or web address]://[email or web address]
== END | disposition home or self-care (01) ==
LOC: RADNMMAIN 06:37
PROVIDERS: ATTEND Internal Medicine
DX: R11.0 Nausea (principal)
CPT/HCPCS: 78264; A9541

== ENCOUNTER → 2018-03-23 | Outpatient (CLI) | payer OTHER ==
[2018-03-23 14:58] LABS: INR 1.3 (<1.2); Prothrombin Time 12.1 sec (9.0-12.0)
== END ==
LOC: LABWHC1 14:30
PROVIDERS: ATTEND Psychiatry & Neurology Neurology
DX: D65 Disseminated intravascular coagulation [defibrination syndrome] (principal); Z51.81 Encounter for therapeutic drug level monitoring; Z79.01 Long term (current) use of anticoagulants
CPT/HCPCS: 36415; 85610

== ENCOUNTER → 2018-04-21 | Outpatient (CLI) | payer OTHER ==
[2018-04-21 11:18] LABS: INR 1.4 (<1.2); Prothrombin Time 12.7 sec (9.0-12.0)
== END | disposition home or self-care (01) ==
LOC: LABWHC1 10:10
PROVIDERS: ATTEND Psychiatry & Neurology Neurology
DX: D65 Disseminated intravascular coagulation [defibrination syndrome] (principal); Z51.81 Encounter for therapeutic drug level monitoring; Z79.01 Long term (current) use of anticoagulants
CPT/HCPCS: 36415; 85610

== ENCOUNTER → 2018-05-18 | Outpatient (CLI) | payer OTHER ==
[2018-05-18 10:17] LABS: INR 1.2 (<1.2); Prothrombin Time 12.6 sec (9.0-12.0)
== END | disposition home or self-care (01) ==
LOC: LABWHC1 09:32
PROVIDERS: ATTEND Psychiatry & Neurology Neurology
DX: D65 Disseminated intravascular coagulation [defibrination syndrome] (principal)
CPT/HCPCS: 36415; 85610

== ENCOUNTER → 2018-06-01 | Outpatient (CLI) | payer OTHER ==
[2018-06-01 09:05] LABS: INR 1.3 (<1.2); Prothrombin Time 12.9 sec (9.0-12.0)
== END ==
LOC: LABWHC1 08:18
PROVIDERS: ATTEND Psychiatry & Neurology Neurology
DX: D65 Disseminated intravascular coagulation [defibrination syndrome] (principal); Z51.81 Encounter for therapeutic drug level monitoring; Z79.01 Long term (current) use of anticoagulants
CPT/HCPCS: 36415; 85610

== ENCOUNTER → 2018-08-20 | Outpatient (CLI) | payer OTHER ==
[2018-08-20 10:48] LABS: INR 1.1 (<1.2); Partial Thromboplastin Time 22.9 sec (22.0-30.0); Prothrombin Time 11.5 sec (9.0-12.0)
== END ==
LOC: LABWHC1 09:07
PROVIDERS: ATTEND Nurse Practitioner Acute Care
DX: Z51.81 Encounter for therapeutic drug level monitoring (principal)
CPT/HCPCS: 36415; 85610; 85730

== ENCOUNTER → 2018-09-16 | Outpatient (CLI) | payer OTHER ==
[2018-09-16 07:35] LABS: INR 1.2 (<1.2); Prothrombin Time 12.2 sec (9.0-12.0)
== END | disposition home or self-care (01) ==
LOC: LABWHC1 07:01
PROVIDERS: ATTEND Physician Assistant
DX: Z51.81 Encounter for therapeutic drug level monitoring (principal); Z79.899 Other long term (current) drug therapy
CPT/HCPCS: 36415; 85610

== ENCOUNTER → 2018-11-09 | Outpatient (CLI) | payer OTHER ==
[2018-11-09 10:05] LABS: INR 1.4 (<1.2); Prothrombin Time 13.9 sec (9.0-12.0)
== END | disposition home or self-care (01) ==
LOC: LABWHC1 09:36
PROVIDERS: ATTEND Physician Assistant
DX: Z51.81 Encounter for therapeutic drug level monitoring (principal); Z79.899 Other long term (current) drug therapy
CPT/HCPCS: 36415; 85610

== ENCOUNTER 2018-11-14 07:31 | Emergency (ER) | payer OTHER ==
[2018-11-14 07:42] VITALS: PULSE 65; RESP 18; TEMP 98.3
[2018-11-14] MEDS ORDERED: LIDOCAINE 1% INJ 10MG/ML (20 ML MDV) SQ ONE (07:59)
[2018-11-14] MEDS ORDERED: DIPH,PERTUS(ACELL)TETVAC-LF 0.5 ML VIAL IM ONE (07:59)
--- NOTE | 2018-11-14 08:17 | XR ---
EXAMINATION TYPE: XR hand limited bilateral , 4 VIEWS DATE OF EXAM ORDERED: 11/14/2018 HISTORY: dog bites. COMPARISON: None. FINDINGS: No fracture, dislocation or other acute osseous lesion is seen. No radiopaque foreign body is seen. IMPRESSION: NEGATIVE STUDY.
--- NOTE | 2018-11-14 08:18 | ED ---
General Adult HPI - General Chief complaint: Animal Bite Stated complaint: Laceration/dog bite Time Seen by Provider: 11/14/18 07:44 Source: patient, RN notes reviewed Mode of arrival: ambulatory Limitations: no limitations - History of Present Illness Initial comments: 58-year-old male with a complicated past medical history presents for animal bite. Patient states that earlier this morning he was walking his dog when a stray dog tried to attack his dog. States he defended his dog and had multiple cuts to the bilateral hands. Denies any difficulty moving any of his hands. Patient is not up-to-date on tetanus. Denies bites anywhere other than the hands. Denies any other injuries.Patient has no other complaints at this time including shortness of breath, chest pain, abdominal pain, nausea or vomiting, headache, or visual changes. - Related Data Home Medications Medication Instructions Recorded Confirmed Aspirin EC [Ecotrin Low Dose] 81 mg PO HS 11/05/17 11/14/18 Atorvastatin [Lipitor] 40 mg PO HS 11/05/17 11/14/18 Bisoprolol-Hctz 10-6.25 mg [Ziac 1 tab PO HS 11/05/17 11/14/18 10-6.25 MG] Lisinopril [Zestril] 20 mg PO HS 11/05/17 11/14/18 Omeprazole 20 mg PO BID 11/05/17 11/14/18 Allopurinol [Zyloprim] 300 mg PO DAILY 11/14/18 11/14/18 Levothyroxine Sodium [Synthroid] 100 mcg PO DAILY 11/14/18 11/14/18 Warfarin Sodium [Coumadin] 6 mg PO HS 11/14/18 11/14/18 oxyCODONE HCL [oxyCODONE HCL (IR)] 30 mg PO TID 11/14/18 11/14/18 Previous Rx's Medication Instructions Recorded Amoxicillin/Potassium Clav 1 tab PO Q12HR #20 tab 11/14/18 [Augmentin 875-125 Tablet] Allergies Allergy/AdvReac Type Severity Reaction Status Date / Time morphine Allergy Severe Itching Verified 11/14/18 08:35 Review of Systems ROS Statement: Those systems with pertinent positive or pertinent negative responses have been documented in the HPI. ROS Other: All systems not noted in ROS Statement are negative. 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 BLOOD CLOTS X3 IN STOMACH 08/2016. C/O Lhx ischemic colitis(sx) History of Any Multi-Drug Resistant Organisms: None Reported Past Surgical History: Appendectomy, Bowel Resection, Heart Catheterization With Stent, Tonsillectomy Additional Past Surgical History / Comment(s): RT EYE EXTRACTED. BOWEL RESECTION, REMOVAL 16 and EXC 3 BLOOD CLOTS", PUT IN 2 STENTS.colonoscopy Past Anesthesia/Blood Transfusion Reactions: No Reported Reaction Date of Last Stent Placement:: 2014 Past Psychological History: Anxiety Smoking Status: Former smoker Past Alcohol Use History: None Reported Past Drug Use History: Marijuana - Past Family History Father Family Medical History: Cancer Sister(s) Family Medical History: Coronary Artery Disease (CAD) General Exam Limitations: no limitations General appearance: alert, in no apparent distress Head exam: Present: atraumatic, normocephalic, normal inspection Eye exam: Present: PERRL (Left eye), EOMI (Left eye). Absent: normal appearance (Patient has a right eye prosthetic noted) ENT exam: Present: normal exam, mucous membranes moist Neck exam: Present: normal inspection, full ROM. Absent: tenderness, meningismus, lymphadenopathy Respiratory exam: Present: normal lung sounds bilaterally. Absent: respiratory distress, wheezes, rales, rhonchi, stridor Cardiovascular Exam: Present: regular rate, normal rhythm, normal heart sounds. Absent: systolic murmur, diastolic murmur, rubs, gallop, clicks Extremities exam: Present: full ROM (Full range of motion of all digits in the bilateral hands, no overt tendon injury.), other (Full range of motion of all digits in bilateral hands. On left hand there is a small puncture wound on the dorsal first metatarsal as well as a small laceration of the palmar distal phalanx fourth digit. On the right hand there are multiple small puncture dorsal right hand. small wound on the volar right wrist) Neurological exam: Present: alert, oriented X3, CN II-XII intact Psychiatric exam: Present: normal affect, normal mood Course Vital Signs 11/14/18 07:39 Temperature 98.3 F Pulse Rate 65 Respiratory 18 Rate Blood Pressure 146/87 O2 Sat by Pulse 97 Oximetry Medical Decision Making - Medical Decision Making 58-year-old male presents to the ER for bilateral hand puncture wounds after dog bite. Patient tried to defend his dog from a stray dog and was bitten several times in the bilateral hands. Multiple small puncture wounds noted on bilateral hands. No difficulty with range of motion of the hands. Wounds were cleaned thoroughly by first thing soaked in sterile water. A liter of saline was used to irrigate each hand. X-ray shows a negative study. No evidence for foreign body. He was updated on tetanus. I did recommend rabies prophylaxis for patient but he refuses. Discussed with patient that if he does contact rabies there is no cure and it is fatal. Patient is aware of these risks and still refuses the rabies prophylaxis. Patient was started on Augmentin. Recommended follow-up with hand surgery. Recommended returning here for any worsening symptoms. Disposition Clinical Impression: Dog bite Disposition: HOME SELF-CARE Condition: Good Instructions (If sedation given, give patient instructions): Animal Bite (ED) Additional Instructions: Please keep area clean. Monitor for signs of infection such as burning or streaking redness, drainage or fever. Take Augmentin as directed. Follow-up with primary care and orthopedics in one to 2 days. Return here if you notice any signs of infection or any other worsening symptoms. Prescriptions: Amoxicillin/Potassium Clav [Augmentin 875-125 Tablet] 1 tab PO Q12HR #20 tab Is patient prescribed a controlled substance at d/c from ED?: No Referrals: Renaldo Rosales MD [Primary Care Provider] - 1-2 days uJstin Grullon DO [Medical Doctor] - 1-2 days Time of Disposition: 08:54
[2018-11-14] MEDS ORDERED: AMOXIC-POT CLAV 875MG STARTER 2 EACH TABLET PO STA (08:57)
[2018-11-14 09:12] VITALS: BP 127/68
== END 2018-11-14 09:12 | disposition home or self-care (01) ==
LOC: EC 07:31
DX: S61.215A Laceration without foreign body of left ring finger without damage to nail, initial encounter (principal); S61.032A Puncture wound without foreign body of left thumb without damage to nail, initial encounter; S61.531A Puncture wound without foreign body of right wrist, initial encounter; S61.431A Puncture wound without foreign body of right hand, initial encounter; I25.119 Atherosclerotic heart disease of native coronary artery with unspecified angina pectoris; K21.9 Gastro-esophageal reflux disease without esophagitis; E78.5 Hyperlipidemia, unspecified; E07.9 Disorder of thyroid, unspecified; I10 Essential (primary) hypertension; M19.90 Unspecified osteoarthritis, unspecified site; Z87.891 Personal history of nicotine dependence; Z79.82 Long term (current) use of aspirin; Z79.01 Long term (current) use of anticoagulants; Z79.890 Hormone replacement therapy; Z79.891 Long term (current) use of opiate analgesic; Z79.899 Other long term (current) drug therapy; Z88.5 Allergy status to narcotic agent; Z97.0 Presence of artificial eye; Z86.718 Personal history of other venous thrombosis and embolism; Z95.5 Presence of coronary angioplasty implant and graft; Z23 Encounter for immunization; Z53.20 Procedure and treatment not carried out because of patient's decision for unspecified reasons; W54.0XXA Bitten by dog, initial encounter; Y93.K1 Activity, walking an animal
CPT/HCPCS: 99283; 90471; 73120; 90715; J2001

== ENCOUNTER 2018-12-26 13:07 | Emergency (ER) | payer OTHER ==
[2018-12-26 13:36] VITALS: TEMP 98
[2018-12-26] MEDS ORDERED: PANTOPRAZOLE 40 MG/10 ML VIAL IVP STA (14:38)
[2018-12-26] MEDS ORDERED: SODIUM CHLORIDE 0.9% 500 ML 500 ML IV STA (14:38)
[2018-12-26] MEDS ORDERED: ONDANSETRON 4 MG/2 ML VIAL IVP STA (14:38)
[2018-12-26] MEDS ORDERED: HYDROmorphone 1 MG/ML 1 ML SYRINGE IVP STA (14:38)
--- NOTE | 2018-12-26 14:47 | ED ---
General Adult HPI - General Chief complaint: Abdominal Pain Stated complaint: Abd pain Source: patient, RN notes reviewed, old records reviewed Mode of arrival: ambulatory Limitations: no limitations - History of Present Illness Initial comments: Chief complaint and history of present illness this is a 58-year-old male to complaint of abdominal pain getting progressively worse. He reports the nausea and then over 6 months. Yesterday mid abdominal pain was severe doubled him over several times. Patient also reports that 2 weeks ago he stopped taking his Coumadin because he was supposed to start on L Oquist. He is on these blood thinners because of a previous history going back approximately 16 months because of SMA occlusion with clot removal, stent placement and 16 inches the lower intestine removed. Patient has had a decreased appetite for approximately 2 months as well. Patient reports that he stopped Coumadin 2 weeks ago and the Eliquis has not been started because of paperwork. The patient states he has not wanted to restart the Coumadin while waiting for the Eliquis. States he is tired of taking it all the hassles that go along with taking Coumadin. - Related Data Home Medications Medication Instructions Recorded Confirmed Aspirin EC [Ecotrin Low Dose] 81 mg PO DAILY 11/05/17 12/26/18 Atorvastatin [Lipitor] 40 mg PO DAILY 11/05/17 12/26/18 Bisoprolol-Hctz 10-6.25 mg [Ziac 1 tab PO DAILY 11/05/17 12/26/18 10-6.25 MG] Lisinopril [Zestril] 20 mg PO DAILY 11/05/17 12/26/18 Omeprazole 20 mg PO BID 11/05/17 12/26/18 Allopurinol [Zyloprim] 300 mg PO DAILY 11/14/18 12/26/18 Levothyroxine Sodium [Synthroid] 100 mcg PO DAILY 11/14/18 12/26/18 Colchicine 0.6 mg PO DAILY 12/26/18 12/26/18 Allergies Allergy/AdvReac Type Severity Reaction Status Date / Time morphine Allergy Severe Itching Verified 12/26/18 14:55 Review of Systems ROS Statement: Those systems with pertinent positive or pertinent negative responses have been documented in the HPI. Review of systems. Patient denies headache no chest pain no shortness of breath he has been abdominal pain that comes and goes worse the last 24 hours. Nausea and occasional vomiting soft stools morning. Decreased appetite over several months. No neuro deficits. All systems otherwise reviewed. Past medical problems significant for coronary artery disease, patient reports having had catheterization at least one stent. 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 At the same time he had 16 inches of his lower intestine removed. Patient also had at that time acute kidney injury. 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 Other medical problems significant for GERD, hyperlipidemia hypertension osteoarthritis and hypothyroidism. ROS Other: All systems not noted in ROS Statement are negative. 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 BLOOD CLOTS X3 IN STOMACH 08/2016. C/O Lhx ischemic colitis(sx) History of Any Multi-Drug Resistant Organisms: None Reported Past Surgical History: Appendectomy, Bowel Resection, Heart Catheterization With Stent, Tonsillectomy Additional Past Surgical History / Comment(s): RT EYE EXTRACTED. BOWEL RESECTION, REMOVAL 16 and EXC 3 BLOOD CLOTS", PUT IN 2 STENTS.colonoscopy Past Anesthesia/Blood Transfusion Reactions: No Reported Reaction Date of Last Stent Placement:: 2014 Past Psychological History: Anxiety Smoking Status: Former smoker Past Alcohol Use History: None Reported Past Drug Use History: Marijuana - Past Family History Father Family Medical History: Cancer Sister(s) Family Medical History: Coronary Artery Disease (CAD) General Exam - General Exam Comments Initial Comments: General: The patient is awake and alert, here because of worsening abdominal pain. Vital signs temp 98.0 pulse 60 respiratory rate 16 pulse ox 98% room air blood pressure 140/83 Eye: History of glaucoma with right eye enucleated for same, left eye normal per patient. Ears, nose, mouth and throat: There are moist mucous membranes and no oral lesions. Neck: The neck is supple, there is no tenderness. Cardiovascular: There is a regular rate and rhythm. No murmur, rub or gallop is appreciated. Respiratory: Lungs are clear to auscultation, respirations are non-labored, breath sounds are equal. No wheezes, stridor, rales, or rhonchi. Gastrointestinal: Patient has a large midline incision small area approximately 1 cm round delayed healing but no acute drainage. This is the area of maximal discomfort when he does get pain. Voluntary guarding in this area hypoactive bowel sounds today. He did have a bowel movement this morning. No difficulty urinating. Back: No complaint of back pain. Musculoskeletal: Full range of upper and lower extremities. Neurological: No complaint of any neuro deficits or weakness. Skin: Skin is warm and dry and no rashes or lesions are noted. Psychiatric: Cooperative, Limitations: no limitations Course Vital Signs 12/26/18 12/26/18 12/26/18 13:33 14:57 15:58 Temperature 98 F Pulse Rate 68 52 L 54 L Respiratory 16 18 18 Rate Blood Pressure 140/83 117/75 116/76 O2 Sat by Pulse 98 97 99 Oximetry Medical Decision Making - Medical Decision Making Medical decision making; this is a 58-year-old male who states he stopped taking his Coumadin approximately 2 weeks ago. He was planning on going on L Oquist but has not been available. The patient's past history significant for having had an occlusion of the SMA approximately 28 months ago. He had clots removed from that vessel and also a stent was placed. At that time he also had 16 inches of lower intestine removed. Patient has been having abdominal pain for approximately 6 months significant worse yesterday. He vomited once yesterday. It was soft stool this morning. The patient's labs show white count 25,000 hemoglobin 15.9 hematocrit of 48. Potassium 4.6. BUN 21 creatinine 0.94 with a GFR greater than 90. Glucose 114. Total bilirubin 1.8. Amylase lipase within normal limits. Urine clean no signs of infection. Plasma lactic acid 1.1, normal. The patient had x-ray of the abdomen; radiologist's impression; supine and upright views were obtained showing no sign of intestinal obstruction or pneumoperitoneum. Fecal pattern is normal. Lung bases are clear. There are no pathologic calcifications over the kidneys. Impression nonacute abdomen. No adverse change compared to old exam. As read by Dr. Lu Patient is being hydrated and received 1 mg of Dilaudid. Patient reports he has ALLERGY to morphine, it causes itchiness but Dilaudid is well tolerated. She received IV Dilaudid, no itchiness or adverse side effect. Partial relief of discomfort. Current findings and explanation as to further testing explained to the patient. The case discussed with on-call general surgeon Dr. Orozco. At this time she wants the patient hydrated, 2 L, and then a CT angiogram of the abdomen and pelvis. CT angiogram of the abdomen and pelvis is performed. And reviewed by radiologist his findings include; there is arterial flow in the abdominal aorta and iliac and femoral arteries bilaterally. There is arterial flow in the proximal superficial femoral and profunda femoris arteries bilaterally. There is arterial flow in both renal arteries without evidence of hemodynamic stenosis. There is a stent the superior mesenteric artery. I see no contrast within the stent but there is contrast opacification of the distal superior mesenteric artery and branches. There is a 1.5 cm cortical cyst anterior left kidney. There is no evidence of solid renal mass. Liver and spleen stomach pancreas appear normal. Bile ducts are not dilated. There is no ascites. There is no sign of free air. There is no evidence of metastatic edema. There are surgical clips apparently at the mid sigmoid colon. Bony pelvis is intact. Lumbar spine is intact. There is a loop small intestine in the lower midabdomen with some wall thickening. Impression; there is thrombosis of this appear mesenteric artery stent. This is a change compared to last exam. There is distal superior mesenteric artery flow. It is not clear the contrast in this appear mesenteric arteries flowing past the stent or from collateral vessels. There is some small bowel wall thickening in the lower midabdomen that could relate to ischemia and is a change compared to last exam. As read by Dr. Lu Report was reviewed with the on-call surgeon. She recommends the patient be transferred to a hospital he can handle the SMA occlusion. She also recommends Zosyn and heparin. The patient will be transferred to [facility] where he had his surgery approximately 28 months ago. I spoke with Dr. Adams, and there emergency room he accepts the patient for transfer further evaluation and management of the medical problems presents with today. Dr. Pierre The findings were explained to the patient the need for him to be transferred to the hospital I can facilitate further management of his acute treatment. As well as the rationale for him to be on antibiotic, Zosyn and IV heparin at this time was also explained. Patient had no other questions. - Lab Data Result diagrams: 12/26/18 13:55 12/26/18 13:55 Lab Results 12/26/18 12/26/18 12/26/18 Range/Units 13:55 13:55 13:55 WBC 25.1 H (3.8-10.6) k/uL RBC 5.25 (4.30-5.90) m/uL Hgb 15.9 (13.0-17.5) gm/dL Hct 48.7 (39.0-53.0) % MCV 92.6 (80.0-100.0) fL MCH 30.2 (25.0-35.0) pg MCHC 32.6 (31.0-37.0) g/dL RDW 14.1 (11.5-15.5) % Plt Count 305 (150-450) k/uL Neutrophils % 89 % Lymphocytes % 4 % Monocytes % 5 % Eosinophils % 0 % Basophils % 0 % Neutrophils # 22.4 H (1.3-7.7) k/uL Lymphocytes # 1.1 (1.0-4.8) k/uL Monocytes # 1.3 H (0-1.0) k/uL Eosinophils # 0.1 (0-0.7) k/uL Basophils # 0.0 (0-0.2) k/uL Sodium 136 L (137-145) mmol/L Potassium 4.6 (3.5-5.1) mmol/L Chloride 100 (98-107) mmol/L Carbon Dioxide 23 (22-30) mmol/L Anion Gap 13 mmol/L BUN 21 H (9-20) mg/dL Creatinine 0.94 (0.66-1.25) mg/dL Est GFR (CKD-EPI)AfAm >90 (>60 ml/min/1.73 sqM) Est GFR (CKD-EPI)NonAf >90 (>60 ml/min/1.73 sqM) Glucose 114 H (74-99) mg/dL Plasma Lactic Acid Sean (0.7-2.0) mmol/L Calcium 9.8 (8.4-10.2) mg/dL Total Bilirubin 1.8 H (0.2-1.3) mg/dL AST 27 (17-59) U/L ALT 19 L (21-72) U/L Alkaline Phosphatase 69 (38-126) U/L Troponin I <0.012 (0.000-0.034) ng/mL Total Protein 8.2 (6.3-8.2) g/dL Albumin 4.7 (3.5-5.0) g/dL Amylase 51 (30-110) U/L Lipase 74 (23-300) U/L Urine Color Urine Appearance (Clear) Urine pH (5.0-8.0) Ur Specific [place] (1.001-1.035) Urine Protein (Negative) Urine Glucose (UA) (Negative) Urine Ketones (Negative) Urine Blood (Negative) Urine Nitrite (Negative) Urine Bilirubin (Negative) Urine Urobilinogen (<2.0) mg/dL Ur Leukocyte Esterase (Negative) 12/26/18 12/26/18 Range/Units 14:50 14:50 WBC (3.8-10.6) k/uL RBC (4.30-5.90) m/uL Hgb (13.0-17.5) gm/dL Hct (39.0-53.0) % MCV (80.0-100.0) fL MCH (25.0-35.0) pg MCHC (31.0-37.0) g/dL RDW (11.5-15.5) % Plt Count (150-450) k/uL Neutrophils % % Lymphocytes % % Monocytes % % Eosinophils % % Basophils % % Neutrophils # (1.3-7.7) k/uL Lymphocytes # (1.0-4.8) k/uL Monocytes # (0-1.0) k/uL Eosinophils # (0-0.7) k/uL Basophils # (0-0.2) k/uL Sodium (137-145) mmol/L Potassium (3.5-5.1) mmol/L Chloride (98-107) mmol/L Carbon Dioxide (22-30) mmol/L Anion Gap mmol/L BUN (9-20) mg/dL Creatinine (0.66-1.25) mg/dL Est GFR (CKD-EPI)AfAm (>60 ml/min/1.73 sqM) Est GFR (CKD-EPI)NonAf (>60 ml/min/1.73 sqM) Glucose (74-99) mg/dL Plasma Lactic Acid Sean 1.1 (0.7-2.0) mmol/L Calcium (8.4-10.2) mg/dL Total Bilirubin (0.2-1.3) mg/dL AST (17-59) U/L ALT (21-72) U/L Alkaline Phosphatase (38-126) U/L Troponin I (0.000-0.034) ng/mL Total Protein (6.3-8.2) g/dL Albumin (3.5-5.0) g/dL Amylase (30-110) U/L Lipase (23-300) U/L Urine Color Yellow Urine Appearance Clear (Clear) Urine pH 5.5 (5.0-8.0) Ur Specific [place] 1.015 (1.001-1.035) Urine Protein Negative (Negative) Urine Glucose (UA) Negative (Negative) Urine Ketones Negative (Negative) Urine Blood Negative (Negative) Urine Nitrite Negative (Negative) Urine Bilirubin Negative (Negative) Urine Urobilinogen <2.0 (<2.0) mg/dL Ur Leukocyte Esterase Negative (Negative) Disposition 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 Specs Out of Hospital Transfer - Requested Specifics: Other Emergency Center ([facility])
[2018-12-26 14:51] LABS: Basophils % (A) 0 %; Eosinophils # (A) 0.1 k/uL (0-0.7); Eosinophils % (A) 0 %; HCT 48.7 % (39.0-53.0); HGB 15.9 gm/dL (13.0-17.5); Lymphocytes # (A) 1.1 k/uL (1.0-4.8); Lymphocytes % (A) 4 %; MCH 30.2 pg (25.0-35.0); MCHC 32.6 g/dL (31.0-37.0); MCV 92.6 fL (80.0-100.0); Mean Platelet Volume 7.5; Monocytes # (A) 1.3 k/uL (0-1.0); Monocytes % (A) 5 %; Neutrophils # (A) 22.4 k/uL (1.3-7.7); Neutrophils % (A) 89 %; Platelet Count 305 k/uL (150-450); RBC 5.25 m/uL (4.30-5.90); RDW 14.1 % (11.5-15.5); WBC 25.1 k/uL (3.8-10.6)
[2018-12-26 14:56] LABS: ALT 19 U/L (21-72); AST 27 U/L (17-59); African American GFR (CKD) >90 (>60 ml/min/1.73 sqM); Albumin 4.7 g/dL (3.5-5.0); Alkaline Phosphatase 69 U/L (38-126); Amylase 51 U/L (30-110); Anion Gap 13 mmol/L; Blood Urea Nitrogen 21 mg/dL (9-20); Calcium 9.8 mg/dL (8.4-10.2); Carbon Dioxide 23 mmol/L (22-30); Chloride 100 mmol/L (98-107); Glucose 114 mg/dL (74-99); Non-African American GFR(CKD) >90 (>60 ml/min/1.73 sqM); Potassium 4.6 mmol/L (3.5-5.1); Sodium 136 mmol/L (137-145); Total Bilirubin 1.8 mg/dL (0.2-1.3); Total Protein 8.2 g/dL (6.3-8.2)
[2018-12-26 14:58] VITALS: RESP 18
[2018-12-26 15:08] LABS: Appearance,Urine Clear (Clear); Bilirubin,Urine Negative (Negative); Blood,Urine Negative (Negative); Color,Urine Yellow; Glucose,Urine (UA) Negative (Negative); Ketones,Urine Negative (Negative); Leukocyte Esterase,Urine Negative (Negative); Nitrite,Urine Negative (Negative); PH, Urine 5.5 (5.0-8.0); Protein,Urine Negative (Negative); Specific Gravity,Urine 1.015 (1.001-1.035); Urobilinogen,Urine <2.0 mg/dL (<2.0)
[2018-12-26] MEDS ORDERED: SODIUM CHLORIDE 0.9% 2,000 ML IV ONE (15:30)
--- NOTE | 2018-12-26 15:41 | XR ---
EXAMINATION TYPE: XR abdomen 2V DATE OF EXAM: 12/26/2018 COMPARISON: 01/26/2018 HISTORY: Abdominal pain TECHNIQUE: 3 views FINDINGS: Supine and upright views were obtained and show no sign of intestinal obstruction or pneumo peritoneum. Fecal pattern is normal. Lung bases are clear. There are no pathologic calcifications ove r the kidneys. IMPRESSION: Nonacute abdomen. No adverse change compared to old exam.
[2018-12-26] MEDS ORDERED: HYDROmorphone 0.5 MG/0.5 ML SYRINGE IVP STA (16:23)
--- NOTE | 2018-12-26 16:58 | CT ---
EXAMINATION TYPE: CT angio abdomen pelvis DATE OF EXAM: 12/26/2018 4:37 PM COMPARISON: 02/11/2018 HISTORY: Abdomen pain, felt below xiphoid region. Hx SMA stent CT DLP: 2251 mGycm Automated exposure control for dose reduction was used. TECHNIQUE: Performed with IV Contrast, patient injected with 100 mL of Isovue 370. There are 3-D post processed images.. FINDINGS: There is arterial flow in the abdominal aorta and the iliac and femoral arteries bilaterally. There i s arterial flow in the proximal superficial femoral and profunda femoris arteries bilaterally. There is arterial flow in both renal arteries without evidence of hemodynamic stenosis. There is a stent in the superior mesenteric artery. I see no contrast within the stent but there is contrast opacificati on of the distal superior mesenteric artery and the branches. There is 1.5 cm cortical cyst anterior left kidney. There is no evidence of solid renal mass. Liver spleen stomach pancreas appear normal. Bile ducts are not dilated. There is no ascites. There is no s ign of free air. There is no evidence of mesenteric edema. There are surgical clips apparently at the MID sigmoid colon. Bony pelvis is intact. Lumbar spine is intact. There is a loop of small bowel in the lower mid abdomen with some wall thickening. IMPRESSION: THERE IS THROMBOSIS OF THE SUPERIOR MESENTERIC ARTERY STENT. THIS IS A CHANGE COMPARED TO LAST EXAM. THERE IS DISTAL SUPERIOR MESENTERIC ARTERY FLOW. IT IS NOT CLEAR IF THE CONTRAST IN THE SUPERIOR MESE NTERIC ARTERY IS FLOWING PAST THE STENT OR FROM COLLATERAL VESSELS. THERE IS SOME SMALL BOWEL WALL THICKENING IN THE LOWER MID ABDOMEN THAT COULD RELATE TO ISCHEMIA AND IS A CHANGE COMPARED TO LAST EXAM.
[2018-12-26] MEDS ORDERED: HEPARIN SODIUM,PORCINE 5,000 UNIT/ML 1 ML VIAL IV PRN (17:06)
[2018-12-26] MEDS ORDERED: HEPARIN SODIUM,PORCINE 10,000 UNIT/ML 1 ML VIAL IV ONE (17:06)
[2018-12-26] MEDS ORDERED: PIPERACILLIN-TAZOBACTAM 3.375 GM in SODIUM CHLORIDE 0.9% 100 ML IVPB STA (17:08)
[2018-12-26] MEDS ORDERED: HEPARIN SOD,PORK IN 0.45% NACL 25,000 UNIT in 0.45% NACL 1 250ML.BAG IV SCH (17:15)
[2018-12-26 17:34] VITALS: BP 132/89; PULSE 49
--- NOTE | 2018-12-26 21:36 | P.GSCN ---
History of Present Illness Consult date: 12/26/18 History of present illness: CHIEF COMPLAINT: Abdominal pain HISTORY OF PRESENT ILLNESS: The patient is a 58 year old male with previous history of multiple intra-abdominal clots including mesenteric stent placement who presents with abdominal pain. Last colonoscopy was 1 year ago consistent with colitis. Additionally last upper endoscopy consistent with gastritis. He has chronic nausea which has been ongoing for over 6 months. As he has generalized abdominal pain, he presented to the emergency room. Pain is crampy moderate to severe. He has history of chronic anticoagulant use however he has discontinued his anticoagulant for over 1-2 weeks. Now he presents with moderate severe abdominal pain. Gen. surgery is consulted with regards to his abdominal pain. PAST MEDICAL HISTORY: See list. PAST SURGICAL HISTORY: See list. MEDICATIONS: See list. ALLERGIES: See list. SOCIAL HISTORY: See list. FAMILY HISTORY: See list. REVIEW OF ORGAN SYSTEMS: CONSTITUTIONAL: No fevers or chills. No recent weight loss. EYES: Has right eye prosthesis. History of glaucoma. HEENT: No difficulties with hearing. No nosebleeds. No difficulty swallowing. RESPIRATORY: Denies pneumonia. Denies any troubles with breathing or dyspnea on exertion. CARDIOVASCULAR: Has coronary artery disease. Has hypertension. Past history of chest pain. GASTROINTESTINAL: Previous history of rectal bleeding. Last colonoscopy 2018 one year ago with colitis. Has gastroesophageal reflux disease. History of ischemic colitis. History of abdominal resection of intestine. GENITOURINARY: Denies any blood in urine or increased urinary frequency. NEUROLOGICAL: Denies any numbness or tingling along the distal extremities. No seizure disorders or headaches. MUSCULOSKELETAL: Has back pain, stiffness or joint arthritis. Has gout. SKIN: No current skin cancer. No rash. PSYCHIATRIC: Denies current depression or suicidal thoughts. Has anxiety. ENDOCRINE: Has thyroid disorders. Denies any blood sugar glucose intolerance. HEME/LYMPHATIC: Multiple intra-abdominal ischemic events with blood clots. On chronic blood thinners. History of abdominal stent. ALLERGY/IMMUNOLOGY: No immunoglobulin therapy. No immune deficiencies. BREAST: Denies current breast lumps, pain or nipple discharge. PHYSICAL EXAM: VITALS: Reviewed CONSTITUTIONAL: Well developed and in no acute distress. EYES: Conjuctivae without sclera icterus. Right eye prosthesis. Extraocular movements grossly intact. HEAD, EARS, NOSE, THROAT: Moist buccal mucosa. Head is atraumatic, normoc ephalic. Hears conversational speech. No nasal drainage. NECK: Supple. No JV distention. No thyroidomegaly. RESPIRATORY: Non-labored respirations and equal bilateral excursions. No gross wheezes. CARDIOVASCULAR: Regular rate and rhythm. Extremities without moderate edema. Palpable 2+ radial pulses. ABDOMEN: Soft. Mild distention. Diffusely tender. No gross peritonitis. LYMPH: No neck lymphadenopathy. No axillary lymphadenopathy. MUSCULOSKELETAL: Nail and fingers with good capillary refill. SKIN: Warm and well perfused with good skin turgor. NEUROLOGIC: Cranial nerves I through XII grossly intact. Sensation upper and extremities intact. No focal or lateralizing signs. PSYCH: Appropriate affect. Alert and oriented to person, place and time. Displays appropriate insight. CLINCAL LABS: Reviewed. White blood cell count over 25,000. Creatinine normal 0.94. Lactic acid level normal. MEDICAL TEST: Endoscopy reviewed. Upper and lower endoscopy reviewed from 2018 confirming colitis including gastritis. ASSESSMENT: 1. 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 Medical noncompliance to anticoagulant use 3. Morbid obesity, BMI 36.9 PLAN: 1. Recommend angiogram of the abdomen for high suspicion of recurrent SMA occlusive disease 2. Will likely need transfer to [facility] where SMA stent had been placed. ADDENDUM: IMAGING: CT of the abdomen and pelvis independently reviewed by me demonstrated no free air. RADIOLOGY: Radiology report reviewed consistent with small bowel enteritis with occlusion of SMA new since prior studies. Recommend transfer to tertiary care facility to address SMA stent occlusion and revascularization Thank you for this kind consultation. 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 BLOOD CLOTS X3 IN STOMACH 08/2016. C/O Lhx ischemic colitis(sx) History of Any Multi-Drug Resistant Organisms: None Reported Past Surgical History: Appendectomy, Bowel Resection, Heart Catheterization With Stent, Tonsillectomy Additional Past Surgical History / Comment(s): RT EYE EXTRACTED. BOWEL RESECTION, REMOVAL 16 and EXC 3 BLOOD CLOTS", PUT IN 2 STENTS.colonoscopy Past Anesthesia/Blood Transfusion Reactions: No Reported Reaction Date of Last Stent Placement:: 2014 Past Psychological History: Anxiety Smoking Status: Former smoker Past Alcohol Use History: None Reported Past Drug Use History: Marijuana - Past Family History Father Family Medical History: Cancer Sister(s) Family Medical History: Coronary Artery Disease (CAD) Medications and Allergies Home Medications Medication Instructions Recorded Confirmed Type Aspirin EC [Ecotrin Low Dose] 81 mg PO DAILY 11/05/17 12/26/18 History Atorvastatin [Lipitor] 40 mg PO DAILY 11/05/17 12/26/18 History Bisoprolol-Hctz 10-6.25 mg [Ziac 1 tab PO DAILY 11/05/17 12/26/18 History 10-6.25 MG] Lisinopril [Zestril] 20 mg PO DAILY 11/05/17 12/26/18 History Omeprazole 20 mg PO BID 11/05/17 12/26/18 History Allopurinol [Zyloprim] 300 mg PO DAILY 11/14/18 12/26/18 History Levothyroxine Sodium [Synthroid] 100 mcg PO DAILY 11/14/18 12/26/18 History Colchicine 0.6 mg PO DAILY 12/26/18 12/26/18 History Allergies Allergy/AdvReac Type Severity Reaction Status Date / Time morphine Allergy Severe Itching Verified 12/26/18 14:55 Surgical - Exam Vital Signs Temp Pulse Resp BP Pulse Ox 98 F 68 16 140/83 98 12/26/18 13:33 12/26/18 13:33 12/26/18 13:33 12/26/18 13:33 12/26/18 13:33 Results - Labs 12/26/18 13:55 12/26/18 13:55 Abnormal Lab Results - Last 24 Hours (Table) 12/26/18 12/26/18 Range/Units 13:55 13:55 WBC 25.1 H (3.8-10.6) k/uL Neutrophils # 22.4 H (1.3-7.7) k/uL Monocytes # 1.3 H (0-1.0) k/uL Sodium 136 L (137-145) mmol/L BUN 21 H (9-20) mg/dL Glucose 114 H (74-99) mg/dL Total Bilirubin 1.8 H (0.2-1.3) mg/dL ALT 19 L (21-72) U/L Diabetes panel 12/26/18 Range/Units 13:55 Sodium 136 L (137-145) mmol/L Potassium 4.6 (3.5-5.1) mmol/L Chloride 100 (98-107) mmol/L Carbon Dioxide 23 (22-30) mmol/L BUN 21 H (9-20) mg/dL Creatinine 0.94 (0.66-1.25) mg/dL Glucose 114 H (74-99) mg/dL Calcium 9.8 (8.4-10.2) mg/dL AST 27 (17-59) U/L ALT 19 L (21-72) U/L Alkaline Phosphatase 69 (38-126) U/L Total Protein 8.2 (6.3-8.2) g/dL Albumin 4.7 (3.5-5.0) g/dL Calcium panel 12/26/18 Range/Units 13:55 Calcium 9.8 (8.4-10.2) mg/dL Albumin 4.7 (3.5-5.0) g/dL Pituitary panel 12/26/18 Range/Units 13:55 Sodium 136 L (137-145) mmol/L Potassium 4.6 (3.5-5.1) mmol/L Chloride 100 (98-107) mmol/L Carbon Dioxide 23 (22-30) mmol/L BUN 21 H (9-20) mg/dL Creatinine 0.94 (0.66-1.25) mg/dL Glucose 114 H (74-99) mg/dL Calcium 9.8 (8.4-10.2) mg/dL Adrenal panel 12/26/18 Range/Units 13:55 Sodium 136 L (137-145) mmol/L Potassium 4.6 (3.5-5.1) mmol/L Chloride 100 (98-107) mmol/L Carbon Dioxide 23 (22-30) mmol/L BUN 21 H (9-20) mg/dL Creatinine 0.94 (0.66-1.25) mg/dL Glucose 114 H (74-99) mg/dL Calcium 9.8 (8.4-10.2) mg/dL Total Bilirubin 1.8 H (0.2-1.3) mg/dL AST 27 (17-59) U/L ALT 19 L (21-72) U/L Alkaline Phosphatase 69 (38-126) U/L Total Protein 8.2 (6.3-8.2) g/dL Albumin 4.7 (3.5-5.0) g/dL
== END 2018-12-26 18:10 | disposition short-term general hospital (02) ==
LOC: EC 13:07
DX: K55.029 Acute infarction of small intestine, extent unspecified (principal); I25.119 Atherosclerotic heart disease of native coronary artery with unspecified angina pectoris; K21.9 Gastro-esophageal reflux disease without esophagitis; E78.5 Hyperlipidemia, unspecified; I10 Essential (primary) hypertension; M19.90 Unspecified osteoarthritis, unspecified site; E07.9 Disorder of thyroid, unspecified; H40.9 Unspecified glaucoma; Z87.891 Personal history of nicotine dependence; Z88.5 Allergy status to narcotic agent; Z79.82 Long term (current) use of aspirin; Z79.890 Hormone replacement therapy; Z79.899 Other long term (current) drug therapy; Z95.828 Presence of other vascular implants and grafts; Z90.49 Acquired absence of other specified parts of digestive tract; Z98.890 Other specified postprocedural states; Z95.5 Presence of coronary angioplasty implant and graft; Z82.49 Family history of ischemic heart disease and other diseases of the circulatory system
CPT/HCPCS: 99285; 96365; 96368; 96375 ×4; 96376 ×2; 96361 ×2; 36415; 80053; 82150; 83605; 83690; 84484; 85025; 81003; 87086; 74019; 74174; J2543; J1644 ×2; J2405; J1170 ×2; C9113; Q9967

== ENCOUNTER 2019-06-02 11:58 | Day surgery (SDC) | payer OTHER ==
[2019-06-01 08:28] VITALS: BMI 35.0
[~2019-06-02 11:58] MED LIST changes: +ALPRAZolam 0.25 MG TAB PO PRN; +ALPRAZolam 0.5 MG TAB PO PRN; +ASPIRIN 325 MG TAB PO STA; +ATORVASTATIN 80 MG TAB PO STA; -LIDOCAINE 1% 20 ML VIAL (10MG/ML) FOR IV START INTRADERMA PRN; -MIDAZOLAM 2 MG/2 ML VIAL IV PRN; +NITROGLYCERIN SL TABS 0.4 MG TAB SUBLINGUAL PRN; +SODIUM CHLORIDE 0.9% 1,000 ML in EMPTY BAG 1 BAG IV ONE
[2019-06-02 12:26] VITALS: RESP 16; TEMP 98.2
[2019-06-02 12:43] LABS: Basophils # (A) 0.1 k/uL (0-0.2); Basophils % (A) 1 %; Eosinophils # (A) 0.2 k/uL (0-0.7); Eosinophils % (A) 3 %; HCT 43.6 % (39.0-53.0); HGB 14.6 gm/dL (13.0-17.5); Lymphocytes # (A) 1.9 k/uL (1.0-4.8); Lymphocytes % (A) 27 %; MCH 29.1 pg (25.0-35.0); MCHC 33.4 g/dL (31.0-37.0); MCV 86.9 fL (80.0-100.0); Mean Platelet Volume 7.3; Monocytes # (A) 0.5 k/uL (0-1.0); Monocytes % (A) 7 %; Neutrophils # (A) 4.3 k/uL (1.3-7.7); Neutrophils % (A) 61 %; Platelet Count 222 k/uL (150-450); RBC 5.01 m/uL (4.30-5.90); WBC 7.1 k/uL (3.8-10.6)
[2019-06-02 12:51] LABS: Calcium 8.9 mg/dL (8.4-10.2); Potassium 4.4 mmol/L (3.5-5.1)
[2019-06-02 12:56] LABS: INR 1.2 (<1.2); Prothrombin Time 12.3 sec (9.0-12.0)
[2019-06-02] MEDS ORDERED: ALPRAZolam 0.25 MG TAB PO ONE (15:00)
[2019-06-02] MEDS ORDERED: HEPARIN SODIUM 1,000 UN/ML (10ML VL) ONE (15:48)
[2019-06-02] MEDS ORDERED: LIDOCAINE 1% INJ 10MG/ML (20 ML MDV) ONE (15:48)
[2019-06-02] MEDS ORDERED: VERAPAMIL 2.5 MG/ML 2 ML AMP ONE (15:48)
[2019-06-02] MEDS ORDERED: MIDAZOLAM 2 MG/2 ML VIAL IV ONE (16:05)
[2019-06-02] MEDS ORDERED: LIDOCAINE 1% INJ 10MG/ML (20 ML MDV) SQ ONE (16:10)
[2019-06-02] MEDS: VERAPAMIL SYRINGE (5 MG/10 ML) INTRAARTER ONE ×3 (16:12→16:21)
[2019-06-02] MEDS ORDERED: HYDROmorphone 1 MG/ML 1 ML SYRINGE ONE (16:15)
[2019-06-02] MEDS ORDERED: HYDROmorphone 1 MG/ML 1 ML SYRINGE IVP ONE (16:16)
[2019-06-02] MEDS ORDERED: IOPAMIDOL-370 100ML BTL INJ ONE ×2 (16:18→16:21)
[2019-06-02] MEDS ORDERED: RX INFO: IV CONTRAST WAS GIVEN 1 EACH MISC MISCELLANE PRN (16:29)
[2019-06-02] MEDS ORDERED: SODIUM CHLORIDE 0.9% 1,000 ML IV SCH (16:30)
[2019-06-02 18:38] VITALS: BP 119/61; PULSE 70
--- NOTE | 2019-06-02 23:05 | CC ---
CARDIAC CATHETERIZATION REPORT DATE OF PROCEDURE: 06/02/2019 PERFORMING PHYSICIAN: Hiram Keane MD. PROCEDURES PERFORMED: 1. Selective right and left coronary angiogram. 2. Left heart catheterization. INDICATION: This is a 59-year-old gentleman with history of hypertension and dyslipidemia and peripheral arterial disease who was experiencing symptoms of chest discomfort and underwent myocardial perfusion imaging stress test that revealed inferior ischemia. Because of that, a heart catheterization was advised. APPROACH: Right radial artery. COMPLICATIONS: None. LEVEL OF SEDATION: Moderate, with sedation length of 12 minutes. PROCEDURE DESCRIPTION: After obtaining informed consent, the patient was brought to the cardiac lab clerk. The right radial artery was cannulated using micropuncture technique and the micropuncture wire passed easily. Then I placed a 6-German sheath at the right radial artery. After that, I did give the patient 2 mg of verapamil IA and 9000 units of heparin IV. Selective right and left coronary angiogram was performed using JR4 and JL3.5 catheters. Left heart catheterization was performed using JR4 catheter which crossed the aortic valve. Then I did pullback across the valve. The procedure was completed without any complication. SELECTIVE CORONARY ANGIOGRAM: 1. The right coronary artery is a large-caliber vessel. It is a dominant vessel and appeared to be angiographically normal. Distally it bifurcates into PDA and PLV branches. Both appeared to be angiographically normal. 2. The left main is angiographically normal. It bifurcates into LCX and LAD. 3. The LCX is a large-caliber vessel. It is a nondominant vessel. The LCX is angiographically normal. 4. The LAD. The proximal LAD appeared to be angiographically normal. The mid and distal LAD appeared to be normal. LAD in the proximal portion gives rise to a diagonal branch which seems to be normal. HEMODYNAMICS: The LVEDP was 8-10 mmHg without significant gradient across the aortic valve. CONCLUSION: 1. Normal coronary angiogram. 2. Normal left ventricular end-diastolic pressure. POST-PROCEDURE MANAGEMENT: 1. Medical treatment. 2. Follow up with the patient. MMODL / IJN: [id number] /
== END 2019-06-02 20:52 | disposition home or self-care (01) ==
LOC: CATHCVL 11:58 → 1SOBS 16:27 → CATHCVL 20:52
PROVIDERS: ATTEND Internal Medicine Interventional Cardiology
DX: I20.0 Unstable angina (principal); R94.39 Abnormal result of other cardiovascular function study; I10 Essential (primary) hypertension; I73.9 Peripheral vascular disease, unspecified; E78.00 Pure hypercholesterolemia, unspecified; E78.5 Hyperlipidemia, unspecified; E11.9 Type 2 diabetes mellitus without complications; F17.210 Nicotine dependence, cigarettes, uncomplicated; Z79.01 Long term (current) use of anticoagulants; Z79.890 Hormone replacement therapy; Z79.82 Long term (current) use of aspirin; Z79.899 Other long term (current) drug therapy
CPT/HCPCS: 93458; 80048; 85025; 85610; C1769; C1894; J2250; J2001; J1170; Q9967

== ENCOUNTER → 2020-04-12 | Outpatient (CLI) | payer OTHER ==
--- NOTE | 2020-04-13 11:39 | MR ---
MRI CERVICAL SPINE: CLINICAL HISTORY: Headache with Neck and bilateral shoulder pain per patient. Cervical radiculopathy per order. TECHNIQUE: Multiplanar, multisequence imaging of the cervical spine is performed without IV contrast. COMPARISON: None. FINDINGS: Sagittal images of the cervical spine show the craniocervical junction to appear within nor mal limits. The cervical and upper thoracic spinal cord is normal in course, caliber, and signal. Sl ight grade 1 retrolisthesis C3 on C4. Mild to moderate disc space narrowing C3-C4 level otherwise the vertebral body and intravertebral disk heights are normal. The bone marrow signal intensity is with in normal limits. Axial images show C2-C3 level to appear within normal limits. Axial images at C3-C4 level show uncovertebral facet degenerative changes bilaterally causing mild bi lateral neural foraminal narrowing. Axial images at C4-C5 and C5-C6 levels appear within normal limits. Axial images at C6-C7 level show posterior spur disc complex effacing the anterior thecal sac and cau sing mild bilateral neural foraminal narrowing. Axial images at C7-T1 level are within normal limits. Tiny mucous retention cyst or polyp in the inferior left maxillary sinus sagittal image 1. IMPRESSION: Subtle spondylolisthesis C3-C4 level. Some mild to moderate degenerative changes C3-C4 an d more prominent at C6-C7 level as detailed above.
== END | disposition home or self-care (01) ==
LOC: RADMRIMAIN 21:20
PROVIDERS: ATTEND Orthopaedic Surgery
DX: M43.12 Spondylolisthesis, cervical region (principal); M47.22 Other spondylosis with radiculopathy, cervical region
CPT/HCPCS: 72141

== ENCOUNTER → 2023-03-20 | Outpatient (CLI) | payer OTHER ==
[2023-03-20 10:41] VITALS: BP 172/92; PULSE 71; RESP 16; TEMP 98.3
--- NOTE | 2023-03-20 12:32 | P.PAINPG ---
PQRS Measure Charge Sheet Comment: HISTORY OF PRESENT ILLNESS: A 62 yr old male as a referral from Dr Mcbride presents today w severe and chronic LBP secondary to for evaluation. Pt states pain level is provoked at 9/10 in intensity, constant, localized in the lumbar spine, sharp in character w shooting pain towards the back of the LEs. Pain is provoked by any movement. Pain is alleviated by medications (Oxycodone 30mg #120) and rest. Oswestry axial pain score at 30. PMH: OA, CAD, Angina, DVT, GERD, Hyperlipidemia, HTN, Hypothyroid Disorder, Ischemic Colitis, Vitamin D Deficiency, Anxiety PSH: Colonoscopy (2018), Mesenteric Stents x3 (2017), Appendectomy, Bowel Resection, Heart Catheterization With Stent (2014), Tonsillectomy, R Eye Extraction SH: Former tobacco use, No ETOH abuse, +Cannabis use FH: Fa- CA, Val- CAD All: See list Meds: See list REVIEW OF ORGAN SYSTEMS: CONSTITUTIONAL: No fevers or chills. No recent weight loss. NEUROLOGICAL: + numbness and tingling along the distal extremities. No seizure disorders or headaches. MUSCULOSKELETAL: + pain PSYCHIATRIC: Denies current depression or suicidal thoughts. Physical Examinations : Constitutional : Cooperative , not in acute distress . Neurologic : Cranial nerve II to XII intact. No focal neur ological deficits. Psychiatric : alert & oriented x 3. Matching mood & appropriate affect. Judgment & insight intact. Musculoskeletal : Cervical Spine Motor strength in the deltoid and biceps: Normal right side. Normal Left side Motor strength biceps and the wrist extensors: Normal right side . Normal left side Motor strength in the triceps muscle: Normal right side. Normal left side Deep tendon reflexes: Normal at the biceps. Normal at Brachioradialis. Normal at triceps Vertebral body tenderness to deep palp ation over Cervical facet loading test: positive bilaterally Spurling test: positive bilaterally Neck distraction test: positive bilaterally Daniella sign: positive bilaterally Lumbar spine Motor strength lower extremities ,thigh and legs 5/5 Right side , 5/5 Left side Deep tendon reflexes : Normal Knee Jerk. Normal Ankle Jerk Vertebral body tenderness over Villalobos Test positive Lumbar facet Loading Test: positive Right / positive Left Range of motion of the lumbar spine Flexion 30 degrees, extension 10 degrees Straight Leg Raise test: Left/ Right positive at degree Dane test: positive right / positive left. Severe tenderness over the Sacroiliac joint on the Right / Left sides Gaenslen test: positive bilaterally Seated flexion test: positive bilaterally. Sacral spine : Severe tenderness over the Sacroiliac joint: right side / left side Range of motion: Flexion of the lumbar spine <60 degrees Range of motion: Extension of the lumbar spine <20 degrees Gaenslen's Test positive Dane test: positive right side / left side Thigh Thrust Test Sacral Thrust Test Imaging: None on file Assessment/ Plan : Lumbar DDD Recommendation of Lidoderm 4% #30 NR. Use, side effects, adverse reactions, safe storage discussed. Pt is a cannabis user and detailed discussion about contraindication w narcotics discussed. Pt will have imaging appt setup today from his PCP and will see a shoulder specialist within 2 wks. All questions answered. I have spent greater than 30 minutes on patient care today. Dr Acosta was available by phone for the evaluation of this patient. The time was used to r eview the medical records including relevant urine studies and Prescription history (MAPs), review of the available imaging, evaluation and examination of the patient, coordination of care with the medical staff and if applicable referring physicians, as well as creation of the medical record PQRS Narrative: Smoking Status Former smoker Home Medications: Ambulatory Orders Atorvastatin [Lipitor] 40 mg PO DAILY 11/05/17 Bisoprolol-Hctz 10-6.25 mg [Ziac 10-6.25 MG] 1 tab PO DAILY 11/05/17 Omeprazole 20 mg PO BID 11/05/17 lisinopriL [Zestril] 20 mg PO DAILY 11/05/17 Levothyroxine Sodium [Synthroid] 100 mcg PO DAILY 11/14/18 allopurinoL [Zyloprim] 300 mg PO DAILY 11/14/18 Colchicine 0.6 mg PO DAILY 12/26/18 Aspirin [Adult Low Dose Aspirin EC] 81 mg PO DAILY 07/16/19 Controlled Substance Measures - Controlled Substance Measures Is patient prescribed a controlled substance at discharge?: No
== END ==
LOC: PNWHC3 09:46
PROVIDERS: ATTEND Specialist
DX: M51.36 Other intervertebral disc degeneration, lumbar region (principal); M19.90 Unspecified osteoarthritis, unspecified site; I25.10 Atherosclerotic heart disease of native coronary artery without angina pectoris; K21.9 Gastro-esophageal reflux disease without esophagitis; I10 Essential (primary) hypertension; E07.9 Disorder of thyroid, unspecified; F41.9 Anxiety disorder, unspecified; E78.5 Hyperlipidemia, unspecified; Z86.718 Personal history of other venous thrombosis and embolism; Z87.19 Personal history of other diseases of the digestive system; Z79.82 Long term (current) use of aspirin; Z88.5 Allergy status to narcotic agent; Z79.02 Long term (current) use of antithrombotics/antiplatelets; Z72.0 Tobacco use
CPT/HCPCS: 99211